=== PATIENT | female | born 1935 | race Caucasian/White ===

== ENCOUNTER 2016-09-19 11:51 | Inpatient (IN) | payer OTHER ==
[~2016-09-19] VITALS: Ht 152.4 cm; Wt 88.5 kg
--- NOTE | 2016-09-19 12:08 | ED CARDIAC/CP/PALPITATIONS ---
History of Present Illness General Chief Complaint: General Adult Stated Complaint: LIGHTHEADED,NECK PAIN, ELEVATED BP Source: patient, family Exam Limitations: no limitations Vital Signs & Intake/Output Vital Signs & Intake/Output Vital Signs Date Time Temp Pulse Resp B/P Pulse O2 O2 Flow FiO2 Ox Delivery Rate 09/19 1534 96.9 70 18 125/74 97 Nasal 2.5L Cannula 09/19 1452 97 Nasal 2.0L Cannula 09/19 1355 96.6 70 16 119/72 98 Nasal 2.0L Cannula 09/19 1212 96.6 140 20 132/86 99 Room Air Allergies Coded Allergies: hydrocodone (From VICODIN) (Intermediate, GI DISTRESS 09/19/16) Reconcile Medications Apixaban (Eliquis) 5 MG TABLET 0 PO SEE ADMIN CRITERIA blood clots Please take 2 tabs (10 mg total) twice daily for 7 days (09/22/16 to 09/28/16), then take 1 tablet (5 mg total) twice daily starting thursday09/29/16. Please follow up with Dr. Gayle in 1-2 weeks to determine how long to remain on this medication. Calcium Carbonate/Vitamin D3 (Caltrate 600 + D Tablet) 600 MG-800 TABLET 1 TAB PO DAILY SUPPLEMENT (Reported) Cholecalciferol (Vitamin D3) (Vitamin D3) 2,000 UNIT TABLET 1 TAB PO DAILY SUPPLEMENT (Reported) Cyanocobalamin (Vitamin B-12) 1,000 MCG TABLET 1 TAB PO SuTuThSa SUPPLEMENT ( Reported) Cyclobenzaprine HCl 5 MG TABLET 1 TAB PO TIDPRN PRN MUSCLE SPASMS (Reported) Diphenhydramine HCl 50 MG CAPSULE 1 CAP PO QPM SLEEP (Reported) Duloxetine HCl 60 MG CAPSULE.DR 1 CAP PO DAILY UNKNOWN (Reported) Esomeprazole Magnesium (Nexium 24HR) 22.3 MG CAPSULE.DR 1 CAP PO DAILY GI ( Reported) Krill/[place]-3/Dha/Epa/Lipids (Krill Oil 300 MG Softgel) 300 MG-90 MG-24 MG-50 MG -130 MG CAPSULE 1 CAP PO DAILY SUPPLEMENT (Reported) Simvastatin (Simvastatin*) 10 MG TABLET 1 TAB PO DAILY CHOLESTEROL (Reported) Tramadol HCl 50 MG TABLET 1 TAB PO BIDP PRN PAIN (Reported) Triage Nurses Notes Reviewed? yes Onset: Abrupt Duration: SINCE 2 AM, MULTIPLE EPISODES Quality/Severity: moderate, severe Radiation: jaw, neck Prior Chest Pain/Card Workup: no prior chest pain Associated Symptoms: left upper chest pain, sob with exertion, neck pain HPI: 80-year-old female with history of dyslipidemia, previous lumpectomy status post radiation therapy presents to the ER for chief complaint of feeling dizzy, short of breath. Today she states at 2 AM she woke up having pain in her left side of her neck and her job. She was short of breath. She took 2 Aleve and was able to drift back to sleep. This morning she was still feeling poorly but ended up having breakfast. Past History Travel History Traveled to [place] past 21 day No Medical History Any Pertinent Medical History? see below for history Cardiovascular: hypertension, hyperlipidemia Gastrointestinal: GERD Cancer(s): breast cancer Other Medical Hx: dvt Surgical History Surgical History: non-contributory Psychosocial History What is your primary language Armenian Family History Hx Contributory? No Review of Systems Review of Systems Constitutional: Denies: chills, fever. EENTM: Reports: no symptoms. Respiratory: Reports: short of breath. Cardiovascular: Denies: chest pain. GI: Reports: no symptoms. Genitourinary: Reports: no symptoms. Musculoskeletal: Reports: neck pain. Skin: Reports: no symptoms. Neurological/Psychological: Reports: see HPI (DIZZY). Hematologic/Endocrine: Denies: bruising, bleeding, polyuria, polydipsia. Immunologic/Allergic: Denies: splenectomy. All Other Systems: Reviewed and Negative Physical Exam Physical Exam General Appearance: well developed/nourished, alert, awake Head: atraumatic, normal appearance Eyes: Bilateral: normal appearance, PERRL, EOMI. Ears, Nose, Throat: normal pharynx, normal ENT inspection, hearing grossly normal Neck: normal inspection, supple, full range of motion Respiratory: lungs clear, respiratory distress Cardiovascular: tachycardia, irregularly irregular Peripheral Pulses: 2+ radial (R), 2+ radial (L) Gastrointestinal: normal bowel sounds, soft, non-tender Extremities: TRACE B/L EDEMA Neurologic/Psych: no motor/sensory deficits, awake, alert, oriented x 3 Skin: intact, normal color, warm/dry Core Measures ACS in differential dx? Yes ASA ordered for poss ACS? Yes-ordered Severe Sepsis Present: No Septic Shock Present: No Progress Differential Diagnosis: AMI, aortic dissection, cholecystitis, CHF/pulm edema, pulmonary embolism Plan of Care: Orders Procedure Date/time Status Heart Healthy Diet 09/20 B Active EKG 09/19 1223 Active Telemetry/Demolition Engineer 09/19 1216 Active THYROID STIMULATING HORMONE 09/19 1216 Complete TROPONIN LEVEL 09/19 1216 Complete PARTIAL THROMBOPLASTIN TIME 09/19 1216 Complete PROTHROMBIN TIME 09/19 1216 Complete LACTIC ACID 09/19 1216 Complete FREE T4 09/19 1216 Complete COMPREHENSIVE METABOLIC PANEL 09/19 1216 Complete CBC WITHOUT DIFFERENTIAL 09/19 1216 Complete B-TYPE NATRIURETIC PEP (BNP) 09/19 1216 Complete EKG 09/19 115 Active Laboratory Tests 09/19/16 1517: Lactic Acid Cancelled 09/19/16 1335: PT 10.9, INR 1.04, APTT 28 09/19/16 121: Anion Gap 5, Estimated GFR 29 L, BUN/Creatinine Ratio 25.3 H, Glucose 83, Lactic Acid 1.0, Calcium 8.9, Total Bilirubin 0.6, AST 23, ALT 37, Alkaline Phosphatase 70, Troponin I 0.10, Nzr-R-Fjjhtjnmfma Pept 1610 H, Total Protein 6.3, Albumin 3.8, Globulin 2.5, Albumin/Globulin Ratio 1.5, TSH 2.320, Free T4 1.21, CBC w Diff NO MAN DIFF REQ, RBC 4.04 L, MCV 92.3, MCH 30.2, RDW 14.9 H, MPV 7.9, Gran % 77.4 H, Lymphocytes % 12.1 L, Monocytes % 7.7, Eosinophils % 2.5, Basophils % 0.3, Absolute Granulocytes 6.4, Absolute Lymphocytes 1.0 L, Absolute Monocytes 0.6, Absolute Eosinophils 0.2, Absolute Basophils 0, PUBS MCHC 32.8 L EKG, TELE MONITOR, LABS, CXR ORDERED. PATIENT SPONTANEOUSLY CONVERTED TO NSR. ELEVATED CRE. DOPPLERS, VQ SCAN ORDERED. V/Q CONSISTENT WITH ERIC PE. HEAPRIN STARTED. D/W DR GAYLE FOR ADMISSION. (CARMEN DOMINGUEZ,CRISTINA) Diagnostic Imaging: Viewed by Me: Radiology Read, Ultrasound, Nuclear Medicine. Discussed w/RAD: Radiology Read, Ultrasound, Nuclear Medicine. Radiology Impression: PATIENT: CHRISTY URBINA PRESENT AGE: 80 PATIENT ACCOUNT NO: [id number] : 34 LOCATION: [facility] ORDERING PHYSICIAN: CRISTINA WINSTON MD SERVICE DATE: 09/19/16 EXAM TYPE: US - US-EXT BILAT VENOUS DOPPLER EXAMINATION: US TRIPLEX LOWER EXTREMITY, BILATERAL CLINICAL INFORMATION: Shortness of breath and clinical question of pulmonary embolus. COMPARISON: None. TECHNIQUE: Color-flow triplex imaging with spectral analysis and compression Doppler were performed on the bilateral lower extremities. FINDINGS: Respiratory variation, normal compression and augmented flow are noted throughout the bilateral lower extremities. The visualized common femoral vein, proximal greater saphenous vein, femoral vein, profunda femoral vein, popliteal vein and visualized mid calf venous segments show no evidence of deep venous thrombosis. There is a 2.8 x 2.1 x 1.9 cm right popliteal fossa Todd's cyst. IMPRESSION: 1. Normal triplex scan without evidence of deep venous thrombosis involving the bilateral lower extremities. 2. A right popliteal fossa Todd's cyst is seen. DICTATED BY: EDMUND MARES MD DATE/TIME DICTATED:09/19/161337 JOB SERVICE SPECIALIST:AB DATE/TIME TRANSCRIBED:09/19/161337 CONFIDENTIAL, DO NOT COPY WITHOUT APPROPRIATE AUTHORIZATION. <Electronically signed in Other Vendor System> SIGNED BY: EDMUND MARES MD 09/19/16 1351 Initial ED EKG: AFIB (RAPID) Repeat EKG: changed (NSR) Rhythm Strip: normal sinus rhythm, atrial fibrillation Comments: PATIENT: CHRISTY URBINA PRESENT AGE: 80 PATIENT ACCOUNT NO: [id number] : 34 LOCATION: [facility] ORDERING PHYSICIAN: CRISTINA WINSTON MD SERVICE DATE: 09/19/16 EXAM TYPE: RAD - XRY-PORTABLE CHEST XRAY EXAMINATION: XR PORTABLE CHEST CLINICAL INFORMATION: Rapid A. fib, new onset. Assess for CHF. COMPARISON: None TECHNIQUE: Portable AP view of the chest was obtained. FINDINGS: The thoracic aorta is unfolded. The heart size is top normal for technique with a left ventricular configuration. The lungs appear clear. There is no evidence of pulmonary edema, consolidation, pleural effusion, or pneumothorax. The spine is not well assessed due to technique. No osseous abnormalities are evident. IMPRESSION: No acute abnormality. DICTATED BY: MIMI BANDA MD DATE/TIME DICTATED:09/19/161253 JOB SERVICE SPECIALIST:AB DATE/TIME TRANSCRIBED:09/19/161253 CONFIDENTIAL, DO NOT COPY WITHOUT APPROPRIATE AUTHORIZATION. <Electronically signed in Other Vendor System> SIGNED BY: MIMI BANDA MD 09/19/16 1300 PATIENT: CHRISTY URBINA PRESENT AGE: 80 PATIENT ACCOUNT NO: [id number] : 34 LOCATION: [facility] ORDERING PHYSICIAN: CRISTINA WINSTON MD SERVICE DATE: 09/19/16-1299 EXAM TYPE: US - US-EXT BILAT VENOUS DOPPLER EXAMINATION: US TRIPLEX LOWER EXTREMITY, BILATERAL CLINICAL INFORMATION: Shortness of breath and clinical question of pulmonary embolus. COMPARISON: None. TECHNIQUE: Color-flow triplex imaging with spectral analysis and compression Doppler were performed on the bilateral lower extremities. FINDINGS: Respiratory variation, normal compression and augmented flow are noted throughout the bilateral lower extremities. The visualized common femoral vein, proximal greater saphenous vein, femoral vein, profunda femoral vein, popliteal vein and visualized mid calf venous segments show no evidence of deep venous thrombosis. There is a 2.8 x 2.1 x 1.9 cm right popliteal fossa Todd's cyst. IMPRESSION: 1. Normal triplex scan without evidence of deep venous thrombosis involving the bilateral lower extremities. 2. A right popliteal fossa Todd's cyst is seen. DICTATED BY: EDMUND MARES MD DATE/TIME DICTATED:09/19/161337 JOB SERVICE SPECIALIST:AB DATE/TIME TRANSCRIBED:09/19/161337 CONFIDENTIAL, DO NOT COPY WITHOUT APPROPRIATE AUTHORIZATION. <Electronically signed in Other Vendor System> SIGNED BY: EDMUND MARES MD 09/19/16 1351 PATIENT: CHRISTY URBINA PRESENT AGE: 81 PATIENT ACCOUNT NO: [id number] : 34 LOCATION: [facility] ORDERING PHYSICIAN: CRISTINA WINSTON MD SERVICE DATE: 09/19/16-130 EXAM TYPE: NUC - LUNG SCAN (V/Q) Addendum: This Critical Result was discussed with Dr. Cristina Winston at 4:34 PM on 09/19/2016 and it was ascertained that the content and urgency of the report was understood at the time of direct communication. Addendum Signed by: ELZBIETA GARCIA MD 09/22/16 1107 PULMONARY VENTILATION/PERFUSION STUDY: CLINICAL INDICATION: No atrial fibrillation. Shortness of breath. COMPARISON: No previous lung scan is available for comparison. A chest radiograph dated 01/01/2017, the same date as this lung scan, is available for comparison. PROCEDURE: Following the inhalation of 14.7 millicuries technetium 99m DTPA aerosol, multiple images of the chest were obtained in multiple projections. Subsequently, following the intravenous administration of 4.1 millicuries technetium 99m MAA, images of the chest were again obtained in multiple projections using a gamma scintophoto camera. VENTILATION IMAGES: There is homogeneous distribution of activity in the lungs. No focal ventilatory defects are noted. There is no significant retained activity in the large airways. PERFUSION IMAGES: A segmental perfusion defect is present involving the apical posterior segment of the left upper lobe. No other perfusion abnormalities are present. Chest radiograph dated 09/19/2016 shows no significant abnormality in the left lung apex that corresponds to the perfusion abnormality described above. IMPRESSION: Intermediate probability of pulmonary embolism. A mismatched segmental perfusion defect is present in the left upper lobe as described above. DICTATED BY: ELZBIETA GARCIA MD DATE/TIME DICTATED:09/19/161612 JOB SERVICE SPECIALIST:AB DATE/TIME TRANSCRIBED:09/19/161612 CONFIDENTIAL, DO NOT COPY WITHOUT APPROPRIATE AUTHORIZATION. <Electronically signed in Other Vendor System> SIGNED BY: ELZBIETA GARCIA MD 1622 Departure Departure Time of Disposition: 1650 Disposition: STILL A PATIENT Condition: Stable Clinical Impression Primary Impression: Pulmonary embolism Secondary Impressions: Paroxysmal atrial fibrillation Referrals: CORAL DOMINGUEZ,JEWELL Lorenz Departure Forms: Customer Survey General Discharge Information Prescriptions: Current Visit Scripts Apixaban (Eliquis) 0 PO SEE ADMIN CRITERIA #30 Ref 1 Please take 2 tabs (10 mg total) twice daily for 7 days (09/22/16 to 09/28/16), then take 1 tablet (5 mg total) twice daily starting thursday09/29/16. Please follow up with Dr. Gayle in 1-2 weeks to determine how long to remain on this medication. Admission Note Spoke With: NALINI DOMINGUEZ,LUCIEN Shah Documentation of Exam: Documentation of any treatments & extenuating circumstances including Concerns Regarding Discharge (functional status, medication knowledge or non-compliance, living conditions, etc.) that warrant an admission rather than observation: [ TELE MONITOR, HEPARIN DRIP, PT/PTT, PULMONARY CONSULT, ECHOCARDIOGRAM, SERIAL EKG/TROPONIN] Critical Care Note Critical Care Note Critical Care Time: 30-74 min
--- NOTE | 2016-09-19 12:26 | NUR ---
PT TO ROOM 5, C/O FEELING LIGHTHEADED AND EXERTIONAL SOB. HR NOTED TO BE 130-140 IRREGULAR ON MONITOR. IV EST TO LAC. HAS A HX OF BLOOD CLOTS. WAS ON BLOOD THINNERS X6 YEARS AGO PER PT. DENIES ANY CP AT THIS TIME. PT CONVERTED TO NSR WHILE BEING PLACED ON 02 VIA NC. LABS SENT TO LAB. DR MORALES TO [facility].
--- NOTE | 2016-09-19 12:27 | NUR ---
PORT CXR IN ROOM.
[2016-09-19 12:37] LABS: ABSOLUTE BASOPHIL COUNT 0 /CUMM (0.0-0.2); ABSOLUTE EOSINOPHIL COUNT 0.2 /CUMM (0.0-0.7); ABSOLUTE GRANULOCYTE CT 6.4 /CUMM (1.4-6.5); ABSOLUTE MONOCYTE COUNT 0.6 /CUMM (0.10-0.60); BASOPHIL % 0.3 % (0.0-2.0); EOSINOPHIL % 2.5 % (0-5); GRANULOCYTE % 77.4 % (42.2-75.2); HEMATOCRIT 37.3 % (37-47); MEAN CORPUSCULAR HGB 30.2 PG (27.0-31.0); MEAN CORPUSCULAR HGB CONC 32.8 G/DL (33.0-37.0); MEAN CORPUSCULAR VOLUME 92.3 FL (81.0-99.0); MEAN PLATELET VOLUME 7.9 FL (7.4-10.4); PLATELET COUNT 280 /CUMM (130-400); RBC DISTRIBUTION WIDTH 14.9 % (11.5-14.5); RED BLOOD CELL CT 4.04 /CUMM (4.20-5.40); WHITE BLOOD CELL COUNT 8.3 /CUMM (4.8-10.8)
--- NOTE | 2016-09-19 12:43 | NUR ---
REDRAW ON BLUE TOP PER LAB
[2016-09-19] MEDS ORDERED: SIMVASTATIN10 M1 PO (12:44)
[2016-09-19] MEDS ORDERED: CYCLOBENZAPRINE5 M2 PO (12:45)
[2016-09-19] MEDS ORDERED: DULOXETINE HCL60 MG PO (12:45)
[2016-09-19] MEDS ORDERED: MELOXICAM15 M1 PO (12:45)
[2016-09-19] MEDS ORDERED: TRAMADOL HCL50 M1 PO (12:45)
[2016-09-19] MEDS ORDERED: VITAMIN D32000 UNI1 PO (12:46)
[2016-09-19] MEDS ORDERED: CALTRATE 600 +1 EACH PO (12:46)
[2016-09-19] MEDS ORDERED: VITAMIN B-121000 MC3 PO (12:47)
[2016-09-19] MEDS ORDERED: NEXIUM 24HR22.3 MG PO (12:48)
[2016-09-19] MEDS ORDERED: KRILL OIL 3001 EACH PO (12:48)
[2016-09-19] MEDS ORDERED: DIPHENHYDRAMINE50 M1 PO (12:49)
--- NOTE | 2016-09-19 13:00 | NUR ---
PT OUT FOR TESTING.
--- NOTE | 2016-09-19 13:00 | RADIOLOGY REPORT ---
EXAMINATION: XR PORTABLE CHEST CLINICAL INFORMATION: Rapid A. fib, new onset. Assess for CHF. COMPARISON: None TECHNIQUE: Portable AP view of the chest was obtained. FINDINGS: The thoracic aorta is unfolded. The heart size is top normal for technique with a left ventricular configuration. The lungs appear clear. There is no evidence of pulmonary edema, consolidation, pleural effusion, or pneumothorax. The spine is not well assessed due to technique. No osseous abnormalities are evident. IMPRESSION: No acute abnormality.
--- NOTE | 2016-09-19 13:36 | NUR ---
LABS DRAWN AND SENT BY THIS MST 1 BLUE, ROXANNE, SST
--- NOTE | 2016-09-19 13:51 | ULTRASOUND REPORT ---
EXAMINATION: US TRIPLEX LOWER EXTREMITY, BILATERAL CLINICAL INFORMATION: Shortness of breath and clinical question of pulmonary embolus. COMPARISON: None. TECHNIQUE: Color-flow triplex imaging with spectral analysis and compression Doppler were performed on the bilateral lower extremities. FINDINGS: Respiratory variation, normal compression and augmented flow are noted throughout the bilateral lower extremities. The visualized common femoral vein, proximal greater saphenous vein, femoral vein, profunda femoral vein, popliteal vein and visualized mid calf venous segments show no evidence of deep venous thrombosis. There is a 2.8 x 2.1 x 1.9 cm right popliteal fossa Todd's cyst. IMPRESSION: 1. Normal triplex scan without evidence of deep venous thrombosis involving the bilateral lower extremities. 2. A right popliteal fossa Todd's cyst is seen.
[2016-09-19 14:13] LABS: PT 10.9 SEC (9.4-12.5); PTT 28 SEC (25-37)
--- NOTE | 2016-09-19 14:39 | NUR ---
PT TAKEN TO NUC MED.
--- NOTE | 2016-09-19 14:39 | NUR ---
ASPIRIN ORDERED (SEE MAR)
--- NOTE | 2016-09-19 15:34 | NUR ---
ASSUMED CARE AT THIS TIME, PT RESTING ON STRETCHER DENIES PAIN AT THIS TIME. REMAINS ALERT/ORIENTED.
--- NOTE | 2016-09-19 16:18 | NUR ---
PT QUESTIONING IF SHE CAN EAT PER MD ITS OK. FOOD TRAY ORDERED
--- NOTE | 2016-09-19 16:22 | NUCLEAR MEDICINE REPORT ---
PULMONARY VENTILATION/PERFUSION STUDY: CLINICAL INDICATION: No atrial fibrillation. Shortness of breath. COMPARISON: No previous lung scan is available for comparison. A chest radiograph dated 01/01/2017, the same date as this lung scan, is available for comparison. PROCEDURE: Following the inhalation of 14.7 millicuries technetium 99m DTPA aerosol, multiple images of the chest were obtained in multiple projections. Subsequently, following the intravenous administration of 4.1 millicuries technetium 99m MAA, images of the chest were again obtained in multiple projections using a gamma scintophoto camera. VENTILATION IMAGES: There is homogeneous distribution of activity in the lungs. No focal ventilatory defects are noted. There is no significant retained activity in the large airways. PERFUSION IMAGES: A segmental perfusion defect is present involving the apical posterior segment of the left upper lobe. No other perfusion abnormalities are present. Chest radiograph dated 09/19/2016 shows no significant abnormality in the left lung apex that corresponds to the perfusion abnormality described above. IMPRESSION: Intermediate probability of pulmonary embolism. A mismatched segmental perfusion defect is present in the left upper lobe as described above.
--- NOTE | 2016-09-19 17:04 | NUR ---
DR MORALES AT BEDSIDE AND DISCUSSED PLAN OF CARE, HEPARIN BOLUS GIVEN AND IV HEPARING INFUSING VIA PUMP AT 26ML/HR. PT TO HAVE REPEAT LAB WORK AT 2300. PT REMAINS PAIN FREE AT THIS TIME
--- NOTE | 2016-09-19 17:33 | NUR ---
PT SITTING UP EATING AT THIS TIME. AWARE THAT WE ARE WAITING ON BED ASSIGNMENT. REMAINS PAIN FREE AND DENIES SOB
--- NOTE | 2016-09-19 17:47 | NUR ---
VIRGIE DAUGHTER [phone]
--- NOTE | 2016-09-19 17:54 | NUR ---
PT AMBULATED TO BATHROOM WITH ASSIST, STEADY GAIT NOTED AND HEPARIN CONTINUES TO INFUSE.
--- NOTE | 2016-09-19 18:39 | NUR ---
PT GOING TO ROOM 180-2.
--- NOTE | 2016-09-19 18:51 | NUR ---
PT EVALUATED BY HOUSE STAFF AT THIS TIME
--- NOTE | 2016-09-19 19:04 | History & Physical ---
See Addendum ROSMERY BRUNO 09/19/16 1903: General Information and HPI MD Statement: I have seen and personally examined CHRISTY URBINA and documented this H&P. The patient is a 80 year old F who presented with a patient stated chief complaint of pain in the neck, and dizziness. Source of Information: patient Exam Limitations: no limitations History of Present Illness: Ms Urbina is an 80-year-old obese nonsmoking woman who was known to be in her usual state of health until this a.m. She has a past medical history of breast cancer (s/p lumpectomy, chemo+RT 2012), LE DVT s/p AC, hyperlipidemia. She came into the ER with a chief concern of pain on the left side of the chest, left side of the jaw, dizziness 1 day. As per the patient, she woke up around 2 AM with pain on the left side of the chest and left side of the jaw, severity 10/10, sharp, relieved slightly upon taking an anti-inflammatory. Since the pain persisted, and felt lightheaded, she contacted her primary care provider who suggested seek medical attention. Reported shortness of breath at rest, and palpitations. Reported decreased mobility in the last few weeks after she accidentally fell on her knees. Reported increased use of NSAIDs for alleviation of pain secondary to osteoarthritis. Allergies/Medications Allergies: Coded Allergies: hydrocodone (From VICODIN) (Intermediate, GI DISTRESS 09/19/16) Home Med list Calcium Carbonate/Vitamin D3 (Caltrate 600 + D Tablet) 600 MG-800 TABLET 1 TAB PO DAILY SUPPLEMENT (Reported) Cholecalciferol (Vitamin D3) (Vitamin D3) 2,000 UNIT TABLET 1 TAB PO DAILY SUPPLEMENT (Reported) Cyanocobalamin (Vitamin B-12) 1,000 MCG TABLET 1 TAB PO SuTuThSa SUPPLEMENT ( Reported) Cyclobenzaprine HCl 5 MG TABLET 1 TAB PO TIDPRN PRN MUSCLE SPASMS (Reported) Diphenhydramine HCl 50 MG CAPSULE 1 CAP PO QPM SLEEP (Reported) Duloxetine HCl 60 MG CAPSULE.DR 1 CAP PO DAILY UNKNOWN (Reported) Esomeprazole Magnesium (Nexium 24HR) 22.3 MG CAPSULE.DR 1 CAP PO DAILY GI ( Reported) Krill/[place]-3/Dha/Epa/Lipids (Krill Oil 300 MG Softgel) 300 MG-90 MG-24 MG-50 MG -130 MG CAPSULE 1 CAP PO DAILY SUPPLEMENT (Reported) Meloxicam 15 MG TABLET 1 TAB PO DAILY PAIN (Reported) Simvastatin (Simvastatin*) 10 MG TABLET 1 TAB PO DAILY CHOLESTEROL (Reported) Tramadol HCl 50 MG TABLET 1 TAB PO BIDP PRN PAIN (Reported) Past History Travel History Traveled to [place] past 21 day No Medical History Cardiovascular: hyperlipidemia, DVT Gastrointestinal: GERD Renal: chronic kidney disease Surgical History Surgical History: lumpectomy Past Family/Social History Functional Ability ADLs Independent: dressing, eating, toileting, bathing. Ambulation: independent IADLs Independent: food prep. Employment History Employment Retired Review of Systems Review of Systems Constitutional: Denies: chills, fever, malaise. EENTM: Denies: blurred vision, double vision, visual changes, hearing changes. Cardiovascular: Reports: palpitations. Denies: edema, orthopena, peripheral edema. Respiratory: Reports: short of breath. Denies: cough. GI: Denies: abdominal pain, constipation, diarrhea, melena, bloody stool. Genitourinary: Denies: dysuria. Musculoskeletal: Denies: back pain, joint pain. Skin: Denies: jaundice. Neurological/Psychological: Denies: anxiety, headache. Hematologic/Endocrine: Denies: bruising. Exam & Diagnostic Data Last 24 Hrs of Vital Signs/I&O Vital Signs Date Time Temp Pulse Resp B/P Pulse O2 O2 Flow FiO2 Ox Delivery Rate 09/19 1958 71 18 108/57 98 Room Air 09/19 1808 97.1 72 18 124/68 98 Nasal 2.0L Cannula 09/19 1534 96.9 70 18 125/74 97 Nasal 2.5L Cannula 09/19 1452 97 Nasal 2.0L Cannula 09/19 1355 96.6 70 16 119/72 98 Nasal 2.0L Cannula 09/19 1212 96.6 140 20 132/86 99 Room Air Physical Exam General Appearance Alert, Oriented X3, Cooperative, No Acute Distress Skin No Breakdown HEENT Atraumatic, PERRLA, EOMI Neck Supple, No JVD, No thryomegaly, +2 Carotid Pulse wo Bruit Lymphatic Axillary nl, Cervical nl Cardiovascular Regular Rate, Normal S1, Normal S2, No Murmurs Lungs Clear to Auscultation, Normal Air Movement Abdomen Normal Bowel Sounds, Soft, No Tenderness Neurological Normal Speech, Strength at 5/5 X4 Ext, Normal Tone, Sensation Intact, Cranial Nerves 3-12 NL, Reflexes 2+ Extremities No Cyanosis, No Edema, Normal Pulses, No Tenderness/Swelling Vascular Pulses Symmetrical Body Front and Back (Adult) 1) tenderness in the left side of the jaw Last 24 Hrs of Labs/Idris: Laboratory Tests 09/19/16 1928: Troponin I 0.26 *H 09/19/16 1517: Lactic Acid Cancelled 09/19/16 1335: PT 10.9, INR 1.04, APTT 28 09/19/16 1217: Anion Gap 5, Estimated GFR 29 L, BUN/Creatinine Ratio 25.3 H, Glucose 83, Lactic Acid 1.0, Calcium 8.9, Total Bilirubin 0.6, AST 23, ALT 37, Alkaline Phosphatase 70, Troponin I 0.10, Ewy-I-Jmrroemnwxi Pept 1610 H, Total Protein 6.3, Albumin 3.8, Globulin 2.5, Albumin/Globulin Ratio 1.5, TSH 2.320, Free T4 1.21, CBC w Diff NO MAN DIFF REQ, RBC 4.04 L, MCV 92.3, MCH 30.2, RDW 14.9 H, MPV 7.9, Gran % 77.4 H, Lymphocytes % 12.1 L, Monocytes % 7.7, Eosinophils % 2.5, Basophils % 0.3, Absolute Granulocytes 6.4, Absolute Lymphocytes 1.0 L, Absolute Monocytes 0.6, Absolute Eosinophils 0.2, Absolute Basophils 0, PUBS MCHC 32.8 L Diagnostic Data EKG Results EKG upon arrival-atrial fibrillation with rapid ventricular rate, Q waves in V1. EKG #2-normal sinus rhythm, no ST-T wave changes. CXR Results No acute process Other Results VQ scan-mismatch at the left upper lobe, intermediate probability. Assessment/Plan Assessment: She is an older lady with a past history of breast cancer status post chemotherapy and radiation, hyperlipidemia is being evaluated for chest pain, jaw pain, palpitations with VQ scan suggestive of possible acute PE and new onset atrial fibrillation. Time of admission, vitals-temperature 96.6, pulse rate 140 (dropped down to 70), respiration 20, blood pressure 132/86, pulse ox 99% on room air (currently 98% on 2 L nasal cannula). Lab findings indicated WBC 8.3, hemoglobin 12.2, hematocrit 37.3, platelets 280. Electrolytes-sodium 132, potassium 4.6, BUN 43, serum creatinine 1.7 (baseline unknown). ProBNP 1610, TSH 2.32, free T4 1 0.21. Radiological findings-chest x-ray did not show any acute pulmonary changes. VQ scan revealed intermediate probability for PE. Differential diagnosis: #1 acute pulmonary embolism #2 acute coronary syndrome # 3 pneumonia Below is the problem list and plan: #1 chest discomfort-differentials include acute PE, myocardial infarction. EKG revealed atrial fibrillation which could likely be due to acute PE. Serial troponins and EKGs to be obtained. Echocardiogram to check the right heart strain. Patient has been started on intravenous heparin. Continue IV heparin at this time. May consider a novel anticoagulant at the time of discharge. Continue to monitor closely for changes in vital signs. No rate controlling meds at this time. Patient had history of malignancy, which makes deep venous thrombosis more likely. No workup for any familial causes required. Can consider this as provoked DVT, and need anticoagulation for at least 4 a total of 3 months. Can reevaluate with a CTA, if kidney function normalizes. #2 atrial fibrillation- likely secondary to acute PE and myocardial infarction. Patient currently on IV heparin. #3 abnormal kidney action-likely due to excessive NSAID use and/or other causes such as HTN. Need to obtain records from the primary care doctor to ascertain the baseline. Check urine lites, urinalysis to be related ATN vs CKD. #4 DVT prophylaxis-IV heparin As Ranked By This Provider Problem List: 1. Paroxysmal atrial fibrillation 2. Pulmonary embolism Core Measures/Miscellaneous Acute Coronary Syndrome ACS Diagnosis: No Cerebrovascular Accident CVA/TIA Diagnosis: No Congestive Heart Failure CHF Diagnosis: No Venous Thromboembolism VTE Risk Factors: Acute medical illness, Age > 40, Cancer[facility]chemo/[facility] prophylaxis d/t: No contraindications No VTE Pharm Prophylaxis d/t: No contraindications VTE Diagnosis: Yes VTE Type: Pulmonary Embolism VTE Confirmed by (Test): LUNG SCAN (V/Q) Severe Sepsis Severe Sepsis Present: No Septic Shock Septic Shock Present: No Miscellaneous Documentation Attending Case Discussed With: NALINI DOMINGUEZ,LUCIEN Shah Primary Care Physician: BRIANNA SAUNDERS MD Patient sees these Specialists Dr Campbell (vascular surgeon) Level of Patient Care: Telemetry VISHAL IVAN 09/19/161941: Resident Review Statement Resident Statement: examined this patient, discussed with university internship, agreed with university internship, reviewed EMR data (avail), discussed with nursing, reviewed images Other Findings: Mrs. Urbina is an 80-year-old female with significant past medical history of osteoarthritis, hyperlipidemia, breast cancer status post lumpectomy, chemotherapy and radiation 2012 [Dr. Arnold oncologist, and Dr. Almonte surgeon] who presents to the hospital emergency department with complaints of neck/jaw pain as well as dizziness and palpitations. She states that she woke up approximately 2 AM with complaints of this neck and jaw pain, which was associated with dyspnea. She took an NSAID and went back to bed however when she woke up in the morning she continued to have pain. She stated that it was approximately 10 out of 10. She also complained of palpitations. She denied any chest pain, nausea or vomiting. She denied any diaphoresis as well. She called her primary care physician and was instructed to come emergency department. Upon arrival to the emergency department she was noted to be tachycardic in the 140s, and in atrial fibrillation. She converted to normal sinus rhythm when she was being examined downstairs in the emergency department. At the time of interview, she states that her pain had completely subsided and she had no acute complaints. Upon further questioning, she states that she fell down 3 weeks ago and bruised her knees, and given the pain she subsequently decreased her activity and laid in bed/on her couch for much of the 3 weeks. At baseline she is independent, lives alone and is quite active walking her dog multiple times a day. Vitals on admission temperature 96.6, pulse rate 140, respiratory rate 20, blood pressure 132/86 saturating 98% on 2 L oxygen via nasal cannula. Physical exam, HEENT exam within normal limits, heart exam regular rate and rhythm, S1-S2 positive without any significant murmurs rubs or gallops. Lung exam, CTA BL. Abdominal exam, soft, non tender, hypoactive bowel sounds. Extremities: BL bruising noted on the knee, no tenderness, or significant swelling. Homans negative. No appreciable calf circumference difference. Pt denied a rectal exam. Initial EKG showed atrial fibrillation at a rate of 134 approximately, after converting to normal sinus rhythm rate was 73, left axis deviation, VT 208 ms, QTC 415ms, a Q wave was noted in V1. No significant ST-T changes were noted. Labs were significant for white blood cell count 8.3, H&H 12.2/37.3, platelet count 280. BEP, sodium 132, potassium 4.6, BUN/creatinine 43/1.7 first lactic acid 1.0. ProBNP 1610. Troponin 0.1. TSH 2.32, free T4 1 0.21. Chest x-ray within normal limits, duplex ultrasound of the lower extremities negative for DVT, however V/Q scan of the lungs revealed a mismatch segmental perfusion defect in the left upper lobe, intermediate probability for pulmonary embolism. Problem list assessment and plan Acute pulmonary embolism and paroxysmal afib * Admit to the telemetry service for tele monitoring for afib evaluation * Paroxysmal atrial fibrillation which converted to normal sinus rhythm. Most likely this is secondary to a pulmonary embolism which may have traveled from her legs given the fact that she did recently have a fall with subsequent immobility. * Although she is a normal sinus rhythm at the moment, she will require anticoagulation regardless given the fact that she does have a pulmonary embolism. * It is a provoked pulmonary embolism, and she will require 3-6 months of anticoagulation. * Echocardiogram to evaluate heart strain and PA pressures and serial troponins and EKGs to rule her out. * We can probably consider one of the new novel anticoagulants, at a reduced dose given her creatinine clearance, consider Eliquis 2.5 mg twice a day. * Pt denied a rectal exam, guiac all stools and contact GI if significant GI bleeding occurs. * cardio consult placed and appreciated CKD * Per the patient, her primary care physician told her that her kidney function was a little impaired however we do not have a baseline. * She states that she does take quite a bit of NSAIDs given her osteoarthritis, including meloxicam and Aleve for years. * We will hold NSAIDs for now and use Tylenol for pain, we will gently hydrate and repeat BUN and creatinine tomorrow morning. 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 * We will consider urinary lytes and spot protein to evaluate for proteinuria * Consider renal ultrasound and nephrology input if labs are abnormal tomorrow morning. FULL CODE Regular diet IV heparin DVT prophylaxis Pain pathway
--- NOTE | 2016-09-19 19:31 | NUR ---
REPEAT TROPONIN SENT TO LAB.
--- NOTE | 2016-09-19 19:35 | NUR ---
CARDIOLOGY AT BEDSIDE
--- NOTE | 2016-09-19 20:03 | NUR ---
ATTEMPT TO GIVE REPORT. RN WILL CALL BACK.
--- NOTE | 2016-09-19 20:08 | NUR ---
CRITICAL TEST RESULTS [id number] CHRISTY URBINA 80 F TESTS AND RESULTS: TROPONIN 0.26 Results received and read back by: MIGUEL ANGEL ALONSO Results received date and time: 09/19/162007 The following provider was notified of the results, and read the results back: HOUSE STAFF VISHAL IVAN PAGED TO BE MADE AWARE #[phone] Notified date and time: 09/19/16 at 2008
--- NOTE | 2016-09-19 20:17 | NUR ---
REPORT GIVEN TO GABRIELLA HENDERSON
--- NOTE | 2016-09-19 20:30 | Cons- Cardiology ---
LUCIEN HOWE MD 09/19/16 2000: General Information and HPI Consulting Request Date of Consult: 09/19/16 Requested By: LUCIEN HOWE MD Reason for Consult: "New onset" atrial fibrillation and intermediate probability VQ scan for pulmonary embolism. Source of Information: patient Exam Limitations: no limitations History of Present Illness: Mrs. Dixie Galdamez is an 80-year-old female with a history of obesity , hypertension, dyslipidemia, previous left breast carcinoma s/p lumpectomy, and subsequent radiation/chemotherapy 2012, left lower extremity deep venous thrombosis 2012 treated with anticoagulation for 3 months who presented to the ED with complaints of neck, jaw, left upper chest discomfort that awakened her from sleep at around 3 AM this morning and persisted, ultimately leading to her seeking medical attention. The discomfort was described as severe ("10/10") with associated shortness of breath and lightheadedness. She took 2 Excedrin and tried to return to sleep, but ultimately called her PCP who was unable to see her and was referred to [place] walk-in facility who referred her here. In the ED she was found to be in atrial fibrillation with a rapid ventricular response and given her symptoms underwent a VQ scan that was read as "intermediate probability". Shortly after her arrival she converted back to sinus rhythm with resolution of her symptoms. Allergies/Medications Allergies: Coded Allergies: hydrocodone (From VICODIN) (Intermediate, GI DISTRESS 09/19/16) Home Med List: Apixaban (Eliquis) 5 MG TABLET 0 PO SEE ADMIN CRITERIA blood clots Please take 2 tabs (10 mg total) twice daily for 7 days (09/22/16 to 09/28/16), then take 1 tablet (5 mg total) twice daily starting thursday09/29/16. Please follow up with Dr. Howe in 1-2 weeks to determine how long to remain on this medication. Calcium Carbonate/Vitamin D3 (Caltrate 600 + D Tablet) 600 MG-800 TABLET 1 TAB PO DAILY SUPPLEMENT (Reported) Cholecalciferol (Vitamin D3) (Vitamin D3) 2,000 UNIT TABLET 1 TAB PO DAILY SUPPLEMENT (Reported) Cyanocobalamin (Vitamin B-12) 1,000 MCG TABLET 1 TAB PO SuTuThSa SUPPLEMENT ( Reported) Cyclobenzaprine HCl 5 MG TABLET 1 TAB PO TIDPRN PRN MUSCLE SPASMS (Reported) Diphenhydramine HCl 50 MG CAPSULE 1 CAP PO QPM SLEEP (Reported) Duloxetine HCl 60 MG CAPSULE.DR 1 CAP PO DAILY UNKNOWN (Reported) Esomeprazole Magnesium (Nexium 24HR) 22.3 MG CAPSULE.DR 1 CAP PO DAILY GI ( Reported) Krill/[place]-3/Dha/Epa/Lipids (Krill Oil 300 MG Softgel) 300 MG-90 MG-24 MG-50 MG -130 MG CAPSULE 1 CAP PO DAILY SUPPLEMENT (Reported) Simvastatin (Simvastatin*) 10 MG TABLET 1 TAB PO DAILY CHOLESTEROL (Reported) Tramadol HCl 50 MG TABLET 1 TAB PO BIDP PRN PAIN (Reported) Review of Systems Review of Systems: A 14 point system review was obtained was noncontributory other than for the fact she wears glasses, has hemorrhoids, osteoarthritis, and spinal stenosis. Past History Travel History Traveled to [place] past 21 day No Medical History Cardiovascular: hyperlipidemia, DVT Gastrointestinal: GERD Surgical History Surgical History: lumpectomy Exam & Diagnostic Data Vital Signs and I&O Vital Signs Date Time Temp Pulse Resp B/P Pulse O2 O2 Flow FiO2 Ox Delivery Rate 09/19 1958 71 18 108/57 98 Room Air 09/19 1808 97.1 72 18 124/68 98 Nasal 2.0L Cannula 09/19 1534 96.9 70 18 125/74 97 Nasal 2.5L Cannula 09/19 1452 97 Nasal 2.0L Cannula 09/19 1355 96.6 70 16 119/72 98 Nasal 2.0L Cannula 09/19 1212 96.6 140 20 132/86 99 Room Air Physical Exam: On physical examination she is a well-developed, overweight elderly female in no acute distress with nasal oxygen in place. Vital signs: See above. HEENT: Normocephalic, atraumatic, EOMI, moist mucous membranes. Neck: No JVD, no bruits. Lungs: Clear to auscultation bilaterally. Heart: S1, S2 with no murmur, gallop, or rub appreciated. PMI fifth ICS at [facility]. Abdomen: Soft, nontender, positive bowel sounds. Extremities: No edema. Peripheral pulses: Symmetrical and intact. Labs/Idris Results: Laboratory Tests 09/19 09/19 09/19 1928 1517 1335 Chemistry Lactic Acid Cancelled Troponin I Pending Coagulation PT (9.4 - 12.5 SEC) 10.9 INR (0.90 - 1.19) 1.04 APTT (25 - 37 SEC) 28 09/19 1217 Chemistry Sodium (137 - 145 mmol/L) 132 L Potassium (3.5 - 5.1 mmol/L) 4.6 Chloride (98 - 107 mmol/L) 103 Carbon Dioxide (22 - 30 mmol/L) 24 Anion Gap (5 - 16) 5 BUN (7 - 17 mg/dL) 43 H Creatinine (0.5 - 1.0 mg/dL) 1.7 H Estimated GFR (>60 ml/min) 29 L BUN/Creatinine Ratio (7 - 25 %) 25.3 H Glucose (65 - 99 mg/dL) 83 Lactic Acid (0.7 - 2.1 mmol/L) 1.0 Calcium (8.4 - 10.2 mg/dL) 8.9 Total Bilirubin (0.2 - 1.3 mg/dL) 0.6 AST (14 - 36 U/L) 23 ALT (9 - 52 U/L) 37 Alkaline Phosphatase (<127 U/L) 70 Troponin I (< 0.11 ng/ml) 0.10 [id number] Pept (<125 pg/mL) 1610 H Total Protein (6.3 - 8.2 g/dL) 6.3 Albumin (3.5 - 5.0 g/dL) 3.8 Globulin (1.9 - 4.2 gm/dL) 2.5 Albumin/Globulin Ratio (1.1 - 2.2 %) 1.5 TSH (0.270 - 4.200 uIU/mL) 2.320 Free T4 (0.85 - 1.93 ng/dL) 1.21 Hematology CBC w Diff NO MAN DIFF REQ WBC (4.8 - 10.8 /CUMM) 8.3 RBC (4.20 - 5.40 /CUMM) 4.04 L Hgb (12.0 - 16.0 G/DL) 12.2 Hct (37 - 47 %) 37.3 MCV (81.0 - 99.0 FL) 92.3 MCH (27.0 - 31.0 PG) 30.2 RDW (11.5 - 14.5 %) 14.9 H Plt Count (130 - 400 /CUMM) 280 MPV (7.4 - 10.4 FL) 7.9 Gran % (42.2 - 75.2 %) 77.4 H Lymphocytes % (20.5 - 51.1 %) 12.1 L Monocytes % (1.7 - 9.3 %) 7.7 Eosinophils % (0 - 5 %) 2.5 Basophils % (0.0 - 2.0 %) 0.3 Absolute Granulocytes (1.4 - 6.5 /CUMM) 6.4 Absolute Lymphocytes (1.2 - 3.4 /CUMM) 1.0 L Absolute Monocytes (0.10 - 0.60 /CUMM) 0.6 Absolute Eosinophils (0.0 - 0.7 /CUMM) 0.2 Absolute Basophils (0.0 - 0.2 /CUMM) 0 PUBS MCHC (33.0 - 37.0 G/DL) 32.8 L Diagnostic Data EKG Results (09/19/2016 @12:05) atrial fibrillation with a rapid ventricular response, and minor nondiagnostic ST-T wave abnormalities. EKG (09/19/2016 @12:29) sinus rhythm, first-degree AV block, and late precordial transition. CXR Results (09/19/2016) no acute cardiopulmonary process. Other Results Lower extremity Doppler ultrasound (09/19/2016) no evidence of deep venous thrombosis. VQ scan (09/19/2016) Intermediate probability of pulmonary embolism. A mismatched segmental perfusion defect is present in the left upper lobe as described above. Assessment/Plan Assessment/Plan Mrs. Galdamez is an elderly female with a history of obesity, hypertension, dyslipidemia, previous "provoked" DVT being treated for breast carcinoma who presented with new onset atrial fibrillation with a rapid ventricular response secondary to a provoked pulmonary embolism following a fall/immobility for the past several weeks. Recommendations: * Telemetry admission, follow-up electrocardiogram in the a.m., follow-up troponins. * IV heparin followed by the initiation of a factor X a inhibitor or warfarin. * Echocardiogram to assess right ventricular size and function, estimated PA systolic pressure, atrial size, left ventricular function, etc. * Nephrology consultation, abdominal ultrasound, check phosphorus, urinalysis, etc. * Add magnesium level to blood work already performed. * Check glycosylated hemoglobin A1c. * DVT prophylaxis being addressed by for anticoagulation for atrial fibrillation /pulmonary embolism. Consult Acknowledgment - Thank you for your consult request. LASHAWN MARTINO MD 09/21/16 1527: Assessment/Plan Consult Acknowledgment - Thank you for your consult request.
[2016-09-19 23:11] VITALS: BP 134/88
[2016-09-20 00:22] LABS: PTT > 120 SEC (25-37)
[2016-09-20 05:37] LABS: ABSOLUTE BASOPHIL COUNT 0 /CUMM (0.0-0.2); ABSOLUTE EOSINOPHIL COUNT 0.4 /CUMM (0.0-0.7); ABSOLUTE GRANULOCYTE CT 5.4 /CUMM (1.4-6.5); ABSOLUTE LYMPH COUNT 1.5 /CUMM (1.2-3.4); ABSOLUTE MONOCYTE COUNT 0.7 /CUMM (0.10-0.60); BASOPHIL % 0.5 % (0.0-2.0); EOSINOPHIL % 5.6 % (0-5); GRANULOCYTE % 66.6 % (42.2-75.2); HEMATOCRIT 35.3 % (37-47); MEAN CORPUSCULAR HGB CONC 32.4 G/DL (33.0-37.0); MEAN CORPUSCULAR VOLUME 92.3 FL (81.0-99.0); MEAN PLATELET VOLUME 8.1 FL (7.4-10.4); PLATELET COUNT 261 /CUMM (130-400); RBC DISTRIBUTION WIDTH 15.1 % (11.5-14.5); RED BLOOD CELL CT 3.83 /CUMM (4.20-5.40); WHITE BLOOD CELL COUNT 8.1 /CUMM (4.8-10.8)
[2016-09-20 07:43] VITALS: BP 125/70
--- NOTE | 2016-09-20 09:16 | PN- Housestaff ---
Subjective Follow-up For: Chest discomfort Atrial Fibrillation Elevated creatinine (GFR 39 unknown baseline) Tele-Events Since Last Visit: Sinus rhythm 64-76bpm NO overnight events Subjective: I saw and examined the patient today morning. she is lying comfortably in the bed, denies any chest pain, discomfort, shortness of breath. Iv heparin running, on 2L oxygen. Review of Systems Constitutional: Reports: see HPI. Comments: ROS negative except the above. Objective Last 24 Hrs of Vital Signs/I&O Vital Signs Date Time Temp Pulse Resp B/P Pulse O2 O2 Flow FiO2 Ox Delivery Rate 09/21 799 99 Nasal 2.0L Cannula 09/20 0743 98.4 72 125/70 99 09/19 2311 98.1 66 20 134/88 98 Nasal 2.0L Cannula 09/19 2244 Nasal 2.0L Cannula 09/19 1958 71 18 108/57 98 Room Air 09/19 1808 97.1 72 18 124/68 98 Nasal 2.0L Cannula 09/19 1534 96.9 70 18 125/74 97 Nasal 2.5L Cannula 09/19 1452 97 Nasal 2.0L Cannula 09/19 1355 96.6 70 16 119/72 98 Nasal 2.0L Cannula 09/19 1212 96.6 140 20 132/86 99 Room Air Intake & Output 09/20 1600 09/20 0800 09/20 0000 Intake Total 200 Output Total Balance 200 Intake, Oral 200 Patient 88.451 kg Weight Physical Exam General Appearance: Alert, Oriented X3, Cooperative Skin: No Rashes, No Breakdown HEENT: Atraumatic, PERRLA, EOMI Neck: Supple Cardiovascular: Regular Rate, Normal S1, Normal S2, No Murmurs Lungs: Clear to Auscultation, Normal Air Movement Abdomen: Normal Bowel Sounds, Soft, No Tenderness Neurological: Strength at 5/5 X4 Ext, Normal Tone, Sensation Intact, Cranial Nerves 3-12 NL Extremities: No Clubbing, No Cyanosis Assessment/Plan Assessment: 80 YO F with a PMH of breast cancer s/p chemotherapy and radiation, hyperlipidemia is being evaluated for chest pain, jaw pain, palpitations with VQ scan suggestive of possible acute PE and new onset atrial fibrillation. Time of admission, vitals-temperature 96.6, pulse rate 140 (dropped down to 70), respiration 20, blood pressure 132/86, pulse ox 99% on room air (currently 98% on 2 L nasal cannula). Lab findings indicated WBC 8.3, hemoglobin 12.2, hematocrit 37.3, platelets 280. Electrolytes-sodium 132, potassium 4.6, BUN 43, serum creatinine 1.7 (baseline unknown). ProBNP 1610, TSH 2.32, free T4 1 0.21. Radiological findings-chest x-ray did not show any acute pulmonary changes. VQ scan revealed intermediate probability for PE. Differential diagnosis: #1 acute pulmonary embolism #2 acute coronary syndrome # 3 pneumonia Below is the problem list and plan: #1 chest discomfort-differentials include acute PE, myocardial infarction. EKG revealed atrial fibrillation which could likely be due to acute PE. Serial troponins and EKGs to be obtained. Echocardiogram to check the right heart strain. Plan is to anticoagulate with IV heparin followed by Xa inhibitor vs warfarin. No rate controlling meds at this time. Patient had history of malignancy, which makes deep venous thrombosis more likely (provoked). No workup for any familial causes required. Can consider this as provoked DVT, and need anticoagulation for at least 4 a total of 3 months. Can reevaluate with a CTA, if kidney function normalizes. #2 atrial fibrillation- likely secondary to acute PE and myocardial infarction. Patient currently on IV heparin. #3 abnormal kidney action-likely due to excessive NSAID use and/or other causes such as HTN. Need to obtain records from the primary care doctor to ascertain the baseline. Nephro consulted, NPO overnight for ultrasound of abdomen, UA, phosphorous requested. #4 DVT prophylaxis-IV heparin Problem List: 1. Pulmonary embolism 2. Paroxysmal atrial fibrillation Pain Ratin Pain Location: n/a Pain Goal: Pain 4 or less Pain Plan: tylenol prn Tomorrow's Labs & Rationales: bep to monitor renal function, electrolytes cbc to monitor H&H, platelets while on heparin ultrasound of abdomen phosphorous UA
[2016-09-20 14:46] LABS: PTT 79 SEC (25-37)
[2016-09-20 16:00] VITALS: BP 126/78
--- NOTE | 2016-09-20 18:18 | PN- Cardiology ---
Subjective Subjective: No specific complaints. Converted to sinus rhythm with first-degree AV block and around midnight and has been maintaining sinus rhythm since that time. Objective Vital Signs and I&Os Vital Signs Date Time Temp Pulse Resp B/P Pulse O2 O2 Flow FiO2 Ox Delivery Rate 09/20 1600 98.8 60 20 126/78 92 Room Air 09/20 1600 92 Room Air 09/20 1444 95 Room Air 09/20 0800 99 Nasal 2.0L Cannula 09/20 0743 98.4 72 125/70 99 09/19 2311 98.1 66 20 134/88 98 Nasal 2.0L Cannula 09/19 2244 Nasal 2.0L Cannula 09/19 1958 71 18 108/57 98 Room Air Intake & Output 09/20 0000 09/19 1600 09/19 0000 Intake Total 1340 200 Output Total Balance 1340 200 Intake, IV 740 Intake, Oral 600 200 Patient 195 lb Weight Physical Exam: On physical examination she is a well-developed, overweight elderly female in no acute distress with nasal oxygen in place. Vital signs: See above. HEENT: Normocephalic, atraumatic, EOMI, moist mucous membranes. Neck: No JVD, no bruits. Lungs: Clear to auscultation bilaterally. Heart: S1, S2 with no murmur, gallop, or rub appreciated. PMI fifth ICS at MCL. Abdomen: Soft, nontender, positive bowel sounds. Extremities: No edema. Peripheral pulses: Symmetrical and intact. Current Medications: Current Medications Sig/Sabine Start time Last Medication Dose Route Stop Time Status Admin Acetaminophen 650 MG Q6P PRN 09/19 1845 AC 09/20 PO 1444 Acetaminophen 325 MG Q6P PRN 09/19 1845 AC PO Acetaminophen 1,000 MG Q6P PRN 09/19 184 AC IV Atorvastatin Calcium 5 MG 1700 09/20 1700 AC 09/20 PO 1653 Cyanocobalamin 1,000 MCG SuTuThSa 09/20 1929 AC PO Cyclobenzaprine HCl 5 MG TIDPRN PRN 09/19 193 AC PO Diphenhydramine HCl 50 MG QPM 09/19 2200 AC 09/19 PO 2218 Duloxetine HCl 60 MG DAILY 09/20 1000 AC 09/20 PO 0836 Heparin Sodium 25,000 UNIT Q24H 09/19 1645 AC 09/20 (Porcine) IV 1653 Sodium Chloride 500 ML Omeprazole 20 MG DAILY AC 09/20 0700 AC 09/20 PO 0606 Polyethylene Glycol 17 GM DAILY 09/20 1000 AC PO Sodium Chloride 1,000 ML DAILY 09/19 1845 AC 09/20 IV 0836 Tramadol HCl 50 MG ONCE ONE 09/20 0900 DC 09/20 PO 09/20 0901 0853 Results Last 48 Hrs of Labs/Mics: Laboratory Tests 09/20/16 1250: APTT 79 H 09/20/16 0425: Troponin I 0.18 *H 09/20/16 0425: Anion Gap 9, Estimated GFR 29 L, BUN/Creatinine Ratio 22.9, CBC w Diff NO MAN DIFF REQ, RBC 3.83 L, MCV 92.3, MCH 30.0, RDW 15.1 H, MPV 8.1, Gran % 66.6, Lymphocytes % 19.2 L, Monocytes % 8.1, Eosinophils % 5.6 H, Basophils % 0.5, Absolute Granulocytes 5.4, Absolute Lymphocytes 1.5, Absolute Monocytes 0.7 H, Absolute Eosinophils 0.4, Absolute Basophils 0, PUBS MCHC 32.4 L 09/19/16 2345: APTT > 120 *H 09/19/16 1928: Troponin I 0.26 *H 09/19/16 1517: Lactic Acid Cancelled 09/19/16 1335: PT 10.9, INR 1.04, APTT 28 09/19/16 1217: Anion Gap 5, Estimated GFR 29 L, BUN/Creatinine Ratio 25.3 H, Glucose 83, Lactic Acid 1.0, Calcium 8.9, Total Bilirubin 0.6, AST 23, ALT 37, Alkaline Phosphatase 70, Troponin I 0.10, [id number] Pept 1610 H, Total Protein 6.3, Albumin 3.8, Globulin 2.5, Albumin/Globulin Ratio 1.5, TSH 2.320, Free T4 1.21, CBC w Diff NO MAN DIFF REQ, RBC 4.04 L, MCV 92.3, MCH 30.2, RDW 14.9 H, MPV 7.9, Gran % 77.4 H, Lymphocytes % 12.1 L, Monocytes % 7.7, Eosinophils % 2.5, Basophils % 0.3, Absolute Granulocytes 6.4, Absolute Lymphocytes 1.0 L, Absolute Monocytes 0.6, Absolute Eosinophils 0.2, Absolute Basophils 0, PUBS MCHC 32.8 L Assessment/Plan Assessment/Plan Mrs. Galdamez is an elderly female with a history of obesity, hypertension, dyslipidemia, previous "provoked" DVT being treated for breast carcinoma who presented with new onset atrial fibrillation with a rapid ventricular response secondary to a provoked pulmonary embolism following a fall/immobility for the past several weeks. Fortunately, she had only a modest troponin elevation which is likely on the basis of the pulmonary embolism, chronic kidney disease, demand ischemia etc. Converted back to sinus rhythm with first-degree AV block at around midnight and has been maintaining sinus rhythm since that time with an acceptable heart rate. Recommendations: * Continue on telemetry. * IV heparin followed by the initiation of a factor X a inhibitor or warfarin. * Echocardiogram in a.m. to assess right ventricular size and function, estimated PA systolic pressure, atrial size, left ventricular function, etc. * Nephrology consultation, abdominal ultrasound, check phosphorus, urinalysis, as were recommended yesterday (09/19/2016). * Add magnesium level to blood work already performed, as was recommended yesterday (09/19/2016). * Check glycosylated hemoglobin A1c, as was also recommended yesterday (2016). * DVT prophylaxis being addressed by for anticoagulation for atrial fibrillation /pulmonary embolism. Further recommendations will follow. Continue telemetry? Yes
[2016-09-21] VITALS: BP 126/78
[2016-09-21 02:18] LABS: PTT 74 SEC (25-37)
[2016-09-21 08:13] VITALS: BP 110/70
--- NOTE | 2016-09-21 09:53 | PN- Housestaff ---
Subjective Follow-up For: Chest discomfort Atrial Fibrillation Elevated creatinine Complaints: no complaints Tele-Events Since Last Visit: Normal sinus rhythm, heart rate between 64-84, no any overnight events Subjective: Patient is seen and examined, denies any complaints Review of Systems Constitutional: Denies: see HPI. Objective Last 24 Hrs of Vital Signs/I&O Vital Signs Date Time Temp Pulse Resp B/P Pulse O2 O2 Flow FiO2 Ox Delivery Rate 09/21 1600 94 Room Air 09/21 1600 98.1 72 18 132/84 94 Room Air 09/21 0813 98.6 67 16 110/70 97 Room Air 09/21 0000 Room Air 09/21 0000 98.4 87 18 126/78 94 Room Air Intake & Output 09/21 1600 09/21 0800 09/21 0000 Intake Total 770 100 536 Output Total 650 Balance 120 100 536 Intake, IV 170 0 136 Intake, Oral 600 100 400 Number 0 0 Bowel Movements Output, Urine 650 Physical Exam General Appearance: Alert, Oriented X3, Cooperative Cardiovascular: Normal S1, Normal S2 Lungs: Clear to Auscultation, Normal Air Movement Extremities: No Clubbing, No Cyanosis Current Medications: Current Medications Sig/Sabine Start time Last Medication Dose Route Stop Time Status Admin Acetaminophen 650 MG Q6P PRN 09/19 1845 AC 09/20 PO 1444 Acetaminophen 325 MG Q6P PRN 09/19 184 AC PO Acetaminophen 1,000 MG Q6P PRN 09/19 184 AC IV Atorvastatin Calcium 5 MG 1700 09/20 1700 AC 09/21 PO 1648 Cyanocobalamin 1,000 MCG SuTuThSa 09/21 2139 AC 09/21 PO 220 Cyanocobalamin 1,000 MCG SuTuThSa 09/20 1930 DC 09/20 PO 2146 Cyclobenzaprine HCl 5 MG TIDPRN PRN 09/19 1930 AC 09/21 PO 2207 Diphenhydramine HCl 50 MG QPM 09/19 2200 AC 09/21 PO 2207 Duloxetine HCl 60 MG DAILY 09/20 1000 AC 09/21 PO 0804 Heparin Sodium 25,000 UNIT Q24H 09/19 1645 AC 09/21 (Porcine) IV 1648 Sodium Chloride 500 ML Omeprazole 20 MG DAILY AC 09/20 0700 AC 09/21 PO 0654 Polyethylene Glycol 17 GM DAILY 09/20 1000 AC PO Sodium Chloride 1,000 ML DAILY 09/19 1845 AC 09/21 IV 0804 Tramadol HCl 50 MG Q6-PRN PRN 09/21 1330 AC 09/21 PO 1344 Last 24 Hrs of Lab/Idris Results Last 24 Hrs of Labs/Mics: Laboratory Tests 09/21/16 1317: APTT 72 H, CBC w Diff NO MAN DIFF REQ, RBC 3.46 L, MCV 92.8, MCH 29.9, RDW 15.5 H, MPV 7.8, Gran % 72.1, Lymphocytes % 14.6 L, Monocytes % 7.6, Eosinophils % 5.0, Basophils % 0.7, Absolute Granulocytes 4.7, Absolute Lymphocytes 0.9 L, Absolute Monocytes 0.5, Absolute Eosinophils 0.3, Absolute Basophils 0, PUBS MCHC 32.3 L 09/21/16 0704: Anion Gap 6, Estimated GFR 39 L, BUN/Creatinine Ratio 21.5, Hemoglobin A1c Pending, Phosphorus 3.6, Magnesium 2.1 09/21/16 0115: APTT 74 H Assessment/Plan Assessment: 80 YO F with a PMH of breast cancer s/p chemotherapy and radiation, hyperlipidemia is being evaluated for chest pain, jaw pain, palpitations with VQ scan suggestive of possible acute PE and new onset atrial fibrillation. Time of admission, vitals-temperature 96.6, pulse rate 140 (dropped down to 70), respiration 20, blood pressure 132/86, pulse ox 99% on room air (currently 98% on 2 L nasal cannula). Lab findings indicated WBC 8.3, hemoglobin 12.2, hematocrit 37.3, platelets 280. Electrolytes-sodium 132, potassium 4.6, BUN 43, serum creatinine 1.7 (baseline unknown). ProBNP 1610, TSH 2.32, free T4 1 0.21. Radiological findings-chest x-ray did not show any acute pulmonary changes. VQ scan revealed intermediate probability for PE. Differential diagnosis: #1 acute pulmonary embolism #2 acute coronary syndrome # 3 pneumonia Below is the problem list and plan: #1 chest discomfort-differentials include acute PE, myocardial infarction. EKG revealed atrial fibrillation which could likely be due to acute PE. Serial troponins were positive, probably secondary to acute coronary event on demand ischemia on right heart strain. Lung scan shows intermediate probability of pulmonary embolism We will follow Echocardiogram to check the right heart strain. Plan is to anticoagulate with IV heparin followed by Xa inhibitor vs warfarin. No rate controlling meds at this time. Patient had history of malignancy, which makes deep venous thrombosis more likely (provoked). No workup for any familial causes required. Can consider this as provoked DVT, and need anticoagulation for at least 3 months. Can reevaluate with a CTA, if kidney function normalizes. #2 atrial fibrillation- likely secondary to acute PE and myocardial infarction. Patient currently on IV heparin. #3 abnormal kidney action -chronic kidney disease likely due to excessive NSAID use and/or other causes such as HTN. Need to obtain records from the primary care doctor to ascertain the baseline. Nephro consulted, advise blood work up which we sent -SPEP, vitamin D, urinalysis, parathyroid hormone, phosphorus, magnesium Ultrasound of the abdomen shows nonspecific abnormal abdominal findings We'll follow UA, phosphorous -3.6. #4 DVT prophylaxis-IV heparin Problem List: 1. Paroxysmal atrial fibrillation 2. Pulmonary embolism Pain Ratin Pain Location: Chest Pain Goal: Remain pain free Pain Plan: [id number] avoid NSAIDs Tomorrow's Labs & Rationales: BEP to follow up with creatinine and electrolyte
[2016-09-21 13:52] LABS: ABSOLUTE BASOPHIL COUNT 0 /CUMM (0.0-0.2); ABSOLUTE EOSINOPHIL COUNT 0.3 /CUMM (0.0-0.7); ABSOLUTE GRANULOCYTE CT 4.7 /CUMM (1.4-6.5); ABSOLUTE LYMPH COUNT 0.9 /CUMM (1.2-3.4); ABSOLUTE MONOCYTE COUNT 0.5 /CUMM (0.10-0.60); BASOPHIL % 0.7 % (0.0-2.0); GRANULOCYTE % 72.1 % (42.2-75.2); HEMATOCRIT 32.1 % (37-47); MEAN CORPUSCULAR HGB 29.9 PG (27.0-31.0); MEAN CORPUSCULAR HGB CONC 32.3 G/DL (33.0-37.0); MEAN CORPUSCULAR VOLUME 92.8 FL (81.0-99.0); MEAN PLATELET VOLUME 7.8 FL (7.4-10.4); PLATELET COUNT 211 /CUMM (130-400); RBC DISTRIBUTION WIDTH 15.5 % (11.5-14.5); RED BLOOD CELL CT 3.46 /CUMM (4.20-5.40); WHITE BLOOD CELL COUNT 6.5 /CUMM (4.8-10.8)
[2016-09-21 14:01] LABS: PTT 72 SEC (25-37)
--- NOTE | 2016-09-21 15:12 | ULTRASOUND REPORT ---
EXAMINATION: US ABDOMEN COMPLETE CLINICAL INFORMATION: Pulmonary embolism, chest pain, chronic Excedrin intake. COMPARISON: None TECHNIQUE: Real-time imaging of the abdominal viscera. The technologist comments the examination was extremely limited secondary to the patient's body habitus and inability to recline. Extensive bowel gas also limited evaluation. FINDINGS: PANCREAS: The visualized portions of the head and body of the pancreas are unremarkable. ABDOMINAL AORTA: The proximal segment is normal in caliber. INFERIOR VENA CAVA: Visualized portions are normal. LIVER: The liver is not well-visualized secondary to overlying bowel gas. A discrete lesion cannot be completely excluded. No definite intrahepatic biliary dilatation within the limits of the exam. GALLBLADDER: The gallbladder is surgically absent. COMMON BILE DUCT: Normal in caliber measuring 0.4 cm in diameter. RIGHT KIDNEY: The right kidney is grossly unremarkable. The lower pole is obscured by overlying bowel gas.. No hydronephrosis. No renal calculi or focal parenchymal lesions. The kidney measures 9.2 cm in maximum dimension. LEFT KIDNEY: The left kidney cannot be visualized secondary to bowel gas. SPLEEN: Grossly unremarkable. The spleen measures 9.1 cm in maximum dimension. FREE FLUID: None. IMPRESSION: Limited study as described. No specific abnormal abdominal findings.
--- NOTE | 2016-09-21 15:32 | Cons- Nephrology ---
General Information and HPI Consulting Request Date of Consult: 09/21/16 Requested By: NALINI DOMINGUEZ,LUCIEN Shah Reason for Consult: SANDY Source of Information: patient, old records Exam Limitations: no limitations History of Present Illness: The patient is an 80-year-old woman with a past medical history most significant for Stage III CKD (baseline SCr ~1.4-1.6 - not known if proteinuric), breast cancer status post lumpectomy/chemotherapy/radiation therapy in 2012, lower extremity DVT status post anticoagulation (3 months), hyperlipidemia, osteoarthritis/spinal stenosis who presented on 09/19 with chest pain, jaw pain, and dizziness. On presentation, patient was found to have blood pressure 132/86 and a heart rate of 140. Labs was most significant for creatinine 1.7, sodium 132, troponin 0.10. There was some concern for pulmonary embolism for which she underwent if he/Q scan which was "intermediate probability." She was put on heparin. She was able to convert to sinus rhythm with first-degree AV block and had been maintained in sinus rhythm. Her troponin peaked at 0.267 since come down to 0.18. Her creatinine which was initially stable at 1.7 came down today to 1.3. No urinalysis. On U/S R kidney is 9.2cm and L kidney could not be visualized 2/ 2 bowel gas. It should be noted that the patient takes nonsteroidals at home ~5 days/week and has done so chronically for her osteoarthritis/spinal stenosis. She is currently chest pain free and has no shortness of breath. Allergies/Medications Allergies: Coded Allergies: hydrocodone (From VICODIN) (Intermediate, GI DISTRESS 09/19/16) Home Med List: Calcium Carbonate/Vitamin D3 (Caltrate 600 + D Tablet) 600 MG-800 TABLET 1 TAB PO DAILY SUPPLEMENT (Reported) Cholecalciferol (Vitamin D3) (Vitamin D3) 2,000 UNIT TABLET 1 TAB PO DAILY SUPPLEMENT (Reported) Cyanocobalamin (Vitamin B-12) 1,000 MCG TABLET 1 TAB PO SuTuThSa SUPPLEMENT ( Reported) Cyclobenzaprine HCl 5 MG TABLET 1 TAB PO TIDPRN PRN MUSCLE SPASMS (Reported) Diphenhydramine HCl 50 MG CAPSULE 1 CAP PO QPM SLEEP (Reported) Duloxetine HCl 60 MG CAPSULE.DR 1 CAP PO DAILY UNKNOWN (Reported) Esomeprazole Magnesium (Nexium 24HR) 22.3 MG CAPSULE. 1 CAP PO DAILY GI ( Reported) Krill/[place] Tim[place]-3/Dha/Epa/Lipids (Krill Oil 300 MG Softgel) 300 MG-90 MG-24 MG-50 MG -130 MG CAPSULE 1 CAP PO DAILY SUPPLEMENT (Reported) Meloxicam 15 MG TABLET 1 TAB PO DAILY PAIN (Reported) Simvastatin (Simvastatin*) 10 MG TABLET 1 TAB PO DAILY CHOLESTEROL (Reported) Tramadol HCl 50 MG TABLET 1 TAB PO BIDP PRN PAIN (Reported) Current Medications: Current Medications Sig/Sabine Start time Last Medication Dose Route Stop Time Status Admin Acetaminophen 650 MG Q6P PRN 09/19 1845 AC 09/20 PO 1444 Acetaminophen 325 MG Q6P PRN 09/19 1845 AC PO Acetaminophen 1,000 MG Q6P PRN 09/19 184 AC IV Atorvastatin Calcium 5 MG 1700 09/20 1700 AC 09/20 PO 1653 Cyanocobalamin 1,000 MCG SuTuThSa 09/20 1930 AC 09/20 PO 2146 Cyclobenzaprine HCl 5 MG TIDPRN PRN 09/19 1930 AC 09/21 PO 0804 Diphenhydramine HCl 50 MG QPM 09/19 2200 AC 09/20 PO 2146 Duloxetine HCl 60 MG DAILY 09/20 1000 AC 09/21 PO 0804 Heparin Sodium 25,000 UNIT Q24H 09/19 1645 AC 09/20 (Porcine) IV 1653 Sodium Chloride 500 ML Omeprazole 20 MG DAILY AC 09/20 0700 AC 09/21 PO 0654 Polyethylene Glycol 17 GM DAILY 09/20 1000 AC PO Sodium Chloride 1,000 ML DAILY 09/19 1845 AC 09/21 IV 0804 Tramadol HCl 50 MG Q6-PRN PRN 09/21 1330 AC 09/21 PO 1344 Review of Systems Review of Systems: Complete 14 point ROS neg except as per HPI Past History Travel History Traveled to [place] past 21 day No Medical History Blood Transfusion Hx: Yes Neurological: NONE EENT: NONE Cardiovascular: hyperlipidemia, DVT Respiratory: NONE Gastrointestinal: GERD Hepatic: NONE Renal: chronic kidney disease Musculoskeletal: NONE Psychiatric: NONE Endocrine: NONE Blood Disorders: NONE Cancer(s): NONE 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 Home Smoking Status: Unknown If Ever Smoked Functional Ability ADLs Independent: dressing, eating, toileting, bathing. Ambulation: independent IADLs Independent: food prep. Employment History Employment: Retired Exam & Diagnostic Data Vital Signs and I&O Vital Signs Date Time Temp Pulse Resp B/P Pulse O2 O2 Flow FiO2 Ox Delivery Rate 09/21 812 98.6 67 16 110/70 97 Room Air 09/21 0000 Room Air 09/21 0000 98.4 87 18 126/78 94 Room Air 09/20 1600 98.8 60 20 126/78 92 Room Air 09/20 1600 92 Room Air Intake & Output 09/21 0400 09/20 1600 09/20 0400 09/19 0400 Intake Total 351 024 5247 200 Output Total 650 Balance 151 604 9253 200 Intake, IV 170 136 740 Intake, Oral 700 400 700 200 Number 0 0 Bowel Movements Output, Urine 650 Patient 195 lb Weight Physical Exam: Gen - pleasant, NAD Head - NCAT Eyes - EOMI, anicteric sclera Neck - JVP not up CV - RRR Chest - clear Abd - soft, nontender Upper ext - no edema Lower ext - no edema Skin - no rash Neuro - AOX3 Results Pertinent Lab Results: Laboratory Tests 09/21 09/21 09/21 09/20 1317 0704 0115 1250 Chemistry Sodium (137 - 145 mmol/L) 136 L Potassium (3.5 - 5.1 mmol/L) 4.3 Chloride (98 - 107 mmol/L) 106 Carbon Dioxide (22 - 30 mmol/L) 24 Anion Gap (5 - 16) 6 BUN (7 - 17 mg/dL) 28 H Creatinine (0.5 - 1.0 mg/dL) 1.3 H Estimated GFR (>60 ml/min) 39 L BUN/Creatinine Ratio (7 - 25 %) 21.5 Hemoglobin A1c (4.2 - 5.8 %) Pending Phosphorus (2.5 - 4.5 mg/dL) 3.6 Magnesium (1.6 - 2.3 mg/dL) 2.1 Coagulation APTT (25 - 37 SEC) 72 H 74 H 79 H Hematology CBC w Diff NO MAN DIFF REQ WBC (4.8 - 10.8 /CUMM) 6.5 RBC (4.20 - 5.40 /CUMM) 3.46 L Hgb (12.0 - 16.0 G/DL) 10.4 L Hct (37 - 47 %) 32.1 L MCV (81.0 - 99.0 FL) 92.8 MCH (27.0 - 31.0 PG) 29.9 RDW (11.5 - 14.5 %) 15.5 H Plt Count (130 - 400 /CUMM) 211 MPV (7.4 - 10.4 FL) 7.8 Gran % (42.2 - 75.2 %) 72.1 Lymphocytes % (20.5 - 51.1 %) 14.6 L Monocytes % (1.7 - 9.3 %) 7.6 Eosinophils % (0 - 5 %) 5.0 Basophils % (0.0 - 2.0 %) 0.7 Absolute Granulocytes (1.4 - 6.5 /CUMM) 4.7 Absolute Lymphocytes (1.2 - 3.4 /CUMM) 0.9 L Absolute Monocytes (0.10 - 0.60 /CUMM) 0.5 Absolute Eosinophils (0.0 - 0.7 /CUMM) 0.3 Absolute Basophils (0.0 - 0.2 /CUMM) 0 PUBS MCHC (33.0 - 37.0 G/DL) 32.3 L 09/20 09/20 09/19 0425 0425 2345 Chemistry Sodium (137 - 145 mmol/L) 138 Potassium (3.5 - 5.1 mmol/L) 4.5 Chloride (98 - 107 mmol/L) 103 Carbon Dioxide (22 - 30 mmol/L) 26 Anion Gap (5 - 16) 9 BUN (7 - 17 mg/dL) 39 H Creatinine (0.5 - 1.0 mg/dL) 1.7 H Estimated GFR (>60 ml/min) 29 L BUN/Creatinine Ratio (7 - 25 %) 22.9 Magnesium (1.6 - 2.3 mg/dL) 3.2 H Troponin I (< 0.11 ng/ml) 0.18 *H Coagulation APTT (25 - 37 SEC) > 120 *H Hematology CBC w Diff NO MAN DIFF REQ WBC (4.8 - 10.8 /CUMM) 8.1 RBC (4.20 - 5.40 /CUMM) 3.83 L Hgb (12.0 - 16.0 G/DL) 11.5 L Hct (37 - 47 %) 35.3 L MCV (81.0 - 99.0 FL) 92.3 MCH (27.0 - 31.0 PG) 30.0 RDW (11.5 - 14.5 %) 15.1 H Plt Count (130 - 400 /CUMM) 261 MPV (7.4 - 10.4 FL) 8.1 Gran % (42.2 - 75.2 %) 66.6 Lymphocytes % (20.5 - 51.1 %) 19.2 L Monocytes % (1.7 - 9.3 %) 8.1 Eosinophils % (0 - 5 %) 5.6 H Basophils % (0.0 - 2.0 %) 0.5 Absolute Granulocytes (1.4 - 6.5 /CUMM) 5.4 Absolute Lymphocytes (1.2 - 3.4 /CUMM) 1.5 Absolute Monocytes (0.10 - 0.60 /CUMM) 0.7 H Absolute Eosinophils (0.0 - 0.7 /CUMM) 0.4 Absolute Basophils (0.0 - 0.2 /CUMM) 0 PUBS MCHC (33.0 - 37.0 G/DL) 32.4 L 09/19 09/19 09/19 1928 1517 1335 Chemistry Lactic Acid Cancelled Troponin I (< 0.11 ng/ml) 0.26 *H Coagulation PT (9.4 - 12.5 SEC) 10.9 INR (0.90 - 1.19) 1.04 APTT (25 - 37 SEC) 28 09/19 1217 Chemistry Sodium (137 - 145 mmol/L) 132 L Potassium (3.5 - 5.1 mmol/L) 4.6 Chloride (98 - 107 mmol/L) 103 Carbon Dioxide (22 - 30 mmol/L) 24 Anion Gap (5 - 16) 5 BUN (7 - 17 mg/dL) 43 H Creatinine (0.5 - 1.0 mg/dL) 1.7 H Estimated GFR (>60 ml/min) 29 L BUN/Creatinine Ratio (7 - 25 %) 25.3 H Glucose (65 - 99 mg/dL) 83 Lactic Acid (0.7 - 2.1 mmol/L) 1.0 Calcium (8.4 - 10.2 mg/dL) 8.9 Total Bilirubin (0.2 - 1.3 mg/dL) 0.6 AST (14 - 36 U/L) 23 ALT (9 - 52 U/L) 37 Alkaline Phosphatase (<127 U/L) 70 Troponin I (< 0.11 ng/ml) 0.10 Sgq-P-Simgrenhnhr Pept (<125 pg/mL) 1610 H Total Protein (6.3 - 8.2 g/dL) 6.3 Albumin (3.5 - 5.0 g/dL) 3.8 Globulin (1.9 - 4.2 gm/dL) 2.5 Albumin/Globulin Ratio (1.1 - 2.2 %) 1.5 TSH (0.270 - 4.200 uIU/mL) 2.320 Free T4 (0.85 - 1.93 ng/dL) 1.21 Hematology CBC w Diff NO MAN DIFF REQ WBC (4.8 - 10.8 /CUMM) 8.3 RBC (4.20 - 5.40 /CUMM) 4.04 L Hgb (12.0 - 16.0 G/DL) 12.2 Hct (37 - 47 %) 37.3 MCV (81.0 - 99.0 FL) 92.3 MCH (27.0 - 31.0 PG) 30.2 RDW (11.5 - 14.5 %) 14.9 H Plt Count (130 - 400 /CUMM) 280 MPV (7.4 - 10.4 FL) 7.9 Gran % (42.2 - 75.2 %) 77.4 H Lymphocytes % (20.5 - 51.1 %) 12.1 L Monocytes % (1.7 - 9.3 %) 7.7 Eosinophils % (0 - 5 %) 2.5 Basophils % (0.0 - 2.0 %) 0.3 Absolute Granulocytes (1.4 - 6.5 /CUMM) 6.4 Absolute Lymphocytes (1.2 - 3.4 /CUMM) 1.0 L Absolute Monocytes (0.10 - 0.60 /CUMM) 0.6 Absolute Eosinophils (0.0 - 0.7 /CUMM) 0.2 Absolute Basophils (0.0 - 0.2 /CUMM) 0 PUBS MCHC (33.0 - 37.0 G/DL) 32.8 L Imaging/Other Studies: EXAM TYPE: NUC - LUNG SCAN (V/Q) PULMONARY VENTILATION/PERFUSION STUDY: CLINICAL INDICATION: No atrial fibrillation. Shortness of breath. COMPARISON: No previous lung scan is available for comparison. A chest radiograph dated 01/01/2017, the same date as this lung scan, is available for comparison. PROCEDURE: Following the inhalation of 14.7 millicuries technetium 99m DTPA aerosol, multiple images of the chest were obtained in multiple projections. Subsequently, following the intravenous administration of 4.1 millicuries technetium 99m MAA, images of the chest were again obtained in multiple projections using a gamma scintophoto camera. VENTILATION IMAGES: There is homogeneous distribution of activity in the lungs. No focal ventilatory defects are noted. There is no significant retained activity in the large airways. PERFUSION IMAGES: A segmental perfusion defect is present involving the apical posterior segment of the left upper lobe. No other perfusion abnormalities are present. Chest radiograph dated 09/19/2016 shows no significant abnormality in the left lung apex that corresponds to the perfusion abnormality described above. IMPRESSION: Intermediate probability of pulmonary embolism. A mismatched segmental perfusion defect is present in the left upper lobe as described above. U/S RIGHT KIDNEY: The right kidney is grossly unremarkable. The lower pole is obscured by overlying bowel gas.. No hydronephrosis. No renal calculi or focal parenchymal lesions. The kidney measures 9.2 cm in maximum dimension. LEFT KIDNEY: The left kidney cannot be visualized secondary to bowel gas. Assessment/Plan Assessment/Recommendations Assessment: Stage III CKD - Given longstanding NSAID use without other significant comorbidities, this is likely the cause of her chronic kidney disease which has been longstanding based on [facility] records. Should get UA for further information. Should also rule out paraprotein. If she ends up going for a [facility] to evaluate cardiac causes of her chest pain, she is at risk for contrast induced nephropathy and may benefit from pre-test hydration and N- acetylcysteine. SANDY - Likely 2/2 NSAID use just prior to coming to the hospital. This has resolved. As she is at her baseline SCr and is eating/drinking, no clear need for IVF. Recommendations: -Would check UA with microscopic analysis -[facility] and [facility] -Would quantify proteinuria if present with spot urine protein, microalbumin, and creatinine -Would stop IVF if eating/drinking OK -If does need to go for [facility], would pre-hydrate with 500cc NS (125cc/hr x4 hours) and give 1200mg oral N-acetylcysteine BID starting the day before -Would avoid NSAID's in the future if possible -Would check 25 Vit D, PTH, Phos Please call [phone] with ?'s
[2016-09-21 16:00] VITALS: BP 132/84
--- NOTE | 2016-09-21 22:09 | PN- Cardiology ---
Subjective Subjective: No complaints. Denies any chest discomfort, palpitations, shortness of breath, lower extremity discomfort, etc. Telemetry reveals sinus rhythm with a heart rate between 64-84 bpm. Objective Vital Signs and I&Os Vital Signs Date Time Temp Pulse Resp B/P Pulse O2 O2 Flow FiO2 Ox Delivery Rate 09/21 1600 94 Room Air 09/21 1600 98.1 72 18 132/84 94 Room Air 09/21 08 98.6 67 16 110/70 97 Room Air 09/21 0000 Room Air 09/21 0000 98.4 87 18 126/78 94 Room Air Intake & Output 09/21 1600 09/21 0800 09/21 0000 09/20 1600 09/20 0809/20 0000 Intake Total 770 586 457 3614 100 200 Output Total 650 Balance 120 329 887 3032 100 200 Intake, IV 170 0 136 740 Intake, Oral 600 100 400 600 100 200 Number 0 0 Bowel Movements Output, Urine 650 Patient 195 lb Weight Physical Exam: On physical examination she is a well-developed, overweight elderly female in no acute distress with nasal oxygen in place. Vital signs: See above. HEENT: Normocephalic, atraumatic, EOMI, moist mucous membranes. Neck: No JVD, no bruits. Lungs: Clear to auscultation bilaterally. Heart: S1, S2 with no murmur, gallop, or rub appreciated. PMI fifth ICS at MCL. Abdomen: Soft, nontender, positive bowel sounds. Extremities: No edema. Peripheral pulses: Symmetrical and intact. Current Medications: Current Medications Sig/Sabine Start time Last Medication Dose Route Stop Time Status Admin Acetaminophen 650 MG Q6P PRN 09/19 1845 AC 09/20 PO 1444 Acetaminophen 325 MG Q6P PRN 09/19 1845 AC PO Acetaminophen 1,000 MG Q6P PRN 09/19 1845 AC IV Atorvastatin Calcium 5 MG 1700 09/20 1700 AC 09/21 PO 1648 Cyanocobalamin 1,000 MCG SuTuThSa 09/21 2138 AC PO Cyanocobalamin 1,000 MCG SuTuThSa 09/20 193 DC 09/20 PO 214 Cyclobenzaprine HCl 5 MG TIDPRN PRN 09/19 1930 AC 09/21 PO 0804 Diphenhydramine HCl 50 MG QPM 09/19 2200 AC 04/08 PO 2146 Duloxetine HCl 60 MG DAILY 09/20 1000 AC 09/21 PO 0804 Heparin Sodium 25,000 UNIT Q24H 09/19 1645 AC 09/21 (Porcine) IV 1648 Sodium Chloride 500 ML Omeprazole 20 MG DAILY AC 09/20 0700 AC 09/21 PO 0654 Polyethylene Glycol 17 GM DAILY 09/20 1000 AC PO Sodium Chloride 1,000 ML DAILY 09/19 1845 AC 09/21 IV 0804 Tramadol HCl 50 MG Q6-PRN PRN 09/21 1330 AC 09/21 PO 1344 Results Last 48 Hrs of Labs/Mics: Laboratory Tests 09/21/16 1317: APTT 72 H, CBC w Diff NO MAN DIFF REQ, RBC 3.46 L, MCV 92.8, MCH 29.9, RDW 15.5 H, MPV 7.8, Gran % 72.1, Lymphocytes % 14.6 L, Monocytes % 7.6, Eosinophils % 5.0, Basophils % 0.7, Absolute Granulocytes 4.7, Absolute Lymphocytes 0.9 L, Absolute Monocytes 0.5, Absolute Eosinophils 0.3, Absolute Basophils 0, PUBS MCHC 32.3 L 09/21/16 0704: Anion Gap 6, Estimated GFR 39 L, BUN/Creatinine Ratio 21.5, Hemoglobin A1c Pending, Phosphorus 3.6, Magnesium 2.1 09/21/16 0115: APTT 74 H 09/20/16 1250: APTT 79 H 09/20/16 0425: Magnesium 3.2 H, Troponin I 0.18 *H 09/20/16 0425: Anion Gap 9, Estimated GFR 29 L, BUN/Creatinine Ratio 22.9, CBC w Diff NO MAN DIFF REQ, RBC 3.83 L, MCV 92.3, MCH 30.0, RDW 15.1 H, MPV 8.1, Gran % 66.6, Lymphocytes % 19.2 L, Monocytes % 8.1, Eosinophils % 5.6 H, Basophils % 0.5, Absolute Granulocytes 5.4, Absolute Lymphocytes 1.5, Absolute Monocytes 0.7 H, Absolute Eosinophils 0.4, Absolute Basophils 0, PUBS MCHC 32.4 L 09/19/16 2345: APTT > 120 *H Recent Imaging Studies: Abdominal ultrasound (09/21/2016): PANCREAS: The visualized portions of the head and body of the pancreas are unremarkable. ABDOMINAL AORTA: The proximal segment is normal in caliber. INFERIOR VENA CAVA: Visualized portions are normal. LIVER: The liver is not well-visualized secondary to overlying bowel gas. A discrete lesion cannot be completely excluded. No definite intrahepatic biliary dilatation within the limits of the exam. GALLBLADDER: The gallbladder is surgically absent. COMMON BILE DUCT: Normal in caliber measuring 0.4 cm in diameter. RIGHT KIDNEY: The right kidney is grossly unremarkable. The lower pole is obscured by overlying bowel gas.. No hydronephrosis. No renal calculi or focal parenchymal lesions. The kidney measures 9.2 cm in maximum dimension. LEFT KIDNEY: The left kidney cannot be visualized secondary to bowel gas. SPLEEN: Grossly unremarkable. The spleen measures 9.1 cm in maximum dimension. FREE FLUID: None. IMPRESSION: Limited study as described. No specific abnormal abdominal findings. Assessment/Plan Assessment/Plan Mrs. Galdamez is an elderly female with a history of obesity, hypertension, dyslipidemia, previous "provoked" DVT being treated for breast carcinoma who presented with new onset atrial fibrillation with a rapid ventricular response secondary to a provoked pulmonary embolism following a fall/immobility for the past several weeks. Fortunately, she had only a modest troponin elevation which is likely on the basis of the pulmonary embolism, chronic kidney disease, demand ischemia etc. Converted back to sinus rhythm with first-degree AV block and has been maintaining sinus rhythm since that time with an acceptable heart rate. Her renal function has also continued to improve. Recommendations: * Continue on telemetry. * IV heparin followed by the initiation of a factor X a inhibitor or warfarin. * Echocardiogram in a.m. to assess right ventricular size and function, estimated PA systolic pressure, atrial size, left ventricular function, etc. * Follow-up on nephrology recommendations. * Follow-up glycosylated hemoglobin A1c, when available. * DVT prophylaxis being addressed by for anticoagulation for atrial fibrillation /pulmonary embolism. Further recommendations will follow. Continue telemetry? Yes Further recommendations will follow. Continue telemetry? Yes
[2016-09-22 00:50] VITALS: BP 126/68
[2016-09-22 01:09] LABS: PTT 72 SEC (25-37)
--- NOTE | 2016-09-22 07:26 | PN- Housestaff ---
Subjective Follow-up For: - Pulmonary embolism - A. fib Complaints: no complaints Tele-Events Since Last Visit: Normal sinus rhythm, heart rate 60-70, no overnight events were noted. Subjective: Patient comfortable this morning. Did not have any complaints. Vitals stable. Oxygen saturation above 92% on room air. Did not have any chest pain, shortness of breath or palpitations. Review of Systems Constitutional: Reports: see HPI. Objective Last 24 Hrs of Vital Signs/I&O Vital Signs Date Time Temp Pulse Resp B/P Pulse O2 O2 Flow FiO2 Ox Delivery Rate 09/22 0050 98.7 72 20 126/68 96 Room Air 09/22 0000 Room Air 09/21 1600 94 Room Air 09/21 1600 98.1 72 18 132/84 94 Room Air 09/21 0813 98.6 67 16 110/70 97 Room Air Intake & Output 09/22 0800 09/22 0000 09/21 1600 Intake Total 139.2 1000 770 Output Total 550 650 Balance -410.8 1000 120 Intake, IV 139.2 450 170 Intake, Oral 550 600 Number 0 Bowel Movements Output, Urine 550 650 Physical Exam General Appearance: No Acute Distress Other Physical Findings: General Exam: AAOx3, No acute distress, Skin: No rashes, no breakdown HEENT: PERRLA, EOMI Neck: Supple, No JVD No cervical lymphadenopathy CVS: Reg Rate, Normal S1,S2, No MGR Resp: Normal air entry, no ronchi/rales Abdomen: Soft, No tenderness, Normal Bowel Sounds Neuro: Normal Speech, Strength 5/5 b/l x 4 extremities, Sensation intact, CN III -XII NL, Reflexes 2+ Extremities: No cyanosis, pedal edema Current Medications: Current Medications Sig/Sabine Start time Last Medication Dose Route Stop Time Status Admin Acetaminophen 650 MG Q6P PRN 09/19 184 AC 09/20 PO 1444 Acetaminophen 325 MG Q6P PRN 09/19 184 AC PO Acetaminophen 1,000 MG Q6P PRN 09/19 184 AC IV Atorvastatin Calcium 5 MG 1700 09/20 1700 AC 09/21 PO 1648 Cyanocobalamin 1,000 MCG SuTuThSa 09/21 2139 AC 09/21 PO 2207 Cyanocobalamin 1,000 MCG SuTuThSa 09/20 1930 DC 09/20 PO 2146 Cyclobenzaprine HCl 5 MG TIDPRN PRN 09/19 1930 AC 09/21 PO 2207 Diphenhydramine HCl 50 MG QPM 09/19 2200 AC 09/21 PO 220 Duloxetine HCl 60 MG DAILY 09/20 1000 AC 09/21 PO 0804 Heparin Sodium 25,000 UNIT Q24H 09/19 1645 AC 09/21 (Porcine) IV 1648 Sodium Chloride 500 ML Omeprazole 20 MG DAILY AC 09/20 0700 AC 09/22 PO 0614 Polyethylene Glycol 17 GM DAILY 09/20 1000 AC PO Sodium Chloride 1,000 ML DAILY 09/19 1845 AC 09/21 IV 0804 Tramadol HCl 50 MG Q6-PRN PRN 09/21 1330 AC 09/21 PO 1344 Last 24 Hrs of Lab/Idris Results Last 24 Hrs of Labs/Mics: Laboratory Tests 09/22/16 0650: Prot Electrophoresis Pending, Total Protein (PEP) Pending, Albumin % (PEP) Pending, Meflq-2-Jobdhykdi Pending, Oghfx-0-Ffulzfmuf Pending, Vjiu-3-Szzitwbk Pending, Dpht-9-Jnurshdy Pending, Gamma Globulins Pending, Abnorm Protein Band 1 Pending, Abnorm Protein Band 2 Pending, Abnorm Protein Band 3 Pending 09/22/16 0650: Sodium Pending, Potassium Pending, Chloride Pending, Carbon Dioxide Pending, Anion Gap Pending, BUN Pending, Creatinine Pending, BUN/Creatinine Ratio Pending , Hemoglobin A1c Pending, Phosphorus Pending, Magnesium Pending, 25-OH Vitamin D Total Pending, PTH Intact Pending, CBC w Diff Pending, WBC Pending, RBC Pending, Hgb Pending, Hct Pending, MCV Pending, MCH Pending, RDW Pending, Plt Count Pending, MPV Pending, PUBS MCHC Pending 09/22/16 0040: APTT 72 H 09/21/16 1317: APTT 72 H, CBC w Diff NO MAN DIFF REQ, RBC 3.46 L, MCV 92.8, MCH 29.9, RDW 15.5 H, MPV 7.8, Gran % 72.1, Lymphocytes % 14.6 L, Monocytes % 7.6, Eosinophils % 5.0, Basophils % 0.7, Absolute Granulocytes 4.7, Absolute Lymphocytes 0.9 L, Absolute Monocytes 0.5, Absolute Eosinophils 0.3, Absolute Basophils 0, PUBS MCHC 32.3 L Assessment/Plan Assessment: 80 YO F with a PMH of breast cancer s/p chemotherapy and radiation, hyperlipidemia is being evaluated for chest pain, jaw pain, palpitations with VQ scan suggestive of possible acute PE and new onset atrial fibrillation. At the time of admission, vitals-temperature 96.6, pulse rate 140 (dropped down to 70), respiration 20, blood pressure 132/86, pulse ox 99% on room air ( currently 98% on 2 L nasal cannula). Lab findings indicated WBC 8.3, hemoglobin 12.2, hematocrit 37.3, platelets 280. Electrolytes-sodium 132, potassium 4.6, BUN 43, serum creatinine 1.7 (baseline unknown). ProBNP 1610, TSH 2.32, free T4 1 0.21. Radiological findings-chest x-ray did not show any acute pulmonary changes. VQ scan revealed intermediate probability for PE. Differential diagnosis: #1 acute pulmonary embolism #2 acute coronary syndrome # 3 pneumonia Below is the problem list and plan: #1 chest discomfort-differentials include acute PE, myocardial infarction. EKG revealed atrial fibrillation which could likely be due to acute PE. Serial troponins were positive, probably secondary to acute coronary event on demand ischemia on right heart strain. May start eliquis today after discussing with Dr. Howe. No rate controlling meds at this time. Can consider this as provoked DVT, and need anticoagulation for at least 3 months. #2 atrial fibrillation- Currently NSR. likely secondary to acute PE and myocardial infarction. Patient currently on IV heparin. #3 abnormal kidney action -chronic kidney disease. Likely due to excessive NSAID use and/or other causes such as HTN. Await results from [facility]. Discontinue fluids. #4 DVT prophylaxis-IV heparin Problem List: 1. Paroxysmal atrial fibrillation 2. Pulmonary embolism Pain Ratin Pain Location: none Pain Goal: Pain 4 or less Pain Plan: tylenol prn Tomorrow's Labs & Rationales: no labs necessary. Pt to be discharged.
[2016-09-22 07:53] LABS: ABSOLUTE BASOPHIL COUNT 0 /CUMM (0.0-0.2); ABSOLUTE EOSINOPHIL COUNT 0.4 /CUMM (0.0-0.7); ABSOLUTE LYMPH COUNT 0.9 /CUMM (1.2-3.4); ABSOLUTE MONOCYTE COUNT 0.3 /CUMM (0.10-0.60); BASOPHIL % 0.8 % (0.0-2.0); EOSINOPHIL % 6.9 % (0-5); GRANULOCYTE % 70.1 % (42.2-75.2); HEMATOCRIT 30.9 % (37-47); MEAN CORPUSCULAR HGB 30.4 PG (27.0-31.0); MEAN CORPUSCULAR VOLUME 92.2 FL (81.0-99.0); MEAN PLATELET VOLUME 7.9 FL (7.4-10.4); PLATELET COUNT 204 /CUMM (130-400); RBC DISTRIBUTION WIDTH 15.1 % (11.5-14.5); RED BLOOD CELL CT 3.36 /CUMM (4.20-5.40); WHITE BLOOD CELL COUNT 5.7 /CUMM (4.8-10.8)
[2016-09-22 08:00] VITALS: BP 120/70
--- NOTE | 2016-09-22 08:16 | Patient Discharge Instructions ---
Discharge Instructions General Discharge Information You were seen/treated for: - Pulmonary emboliosm - Atrial fibrillation Acute Coronary Syndrome Inclusion Criteria At DC or during hospital stay patient has or had the following: ACS DIAGNOSIS No Discharge Core Measures Meds if any: Prescribed or Continued at Discharge Meds if any: NOT Prescribed or Continued at Discharge Congestive Heart Failure Inclusion Criteria At DC or during hospital stay patient has or had the following: CHF DIAGNOSIS No Discharge Core Measures Meds if any: Prescribed or Continued at Discharge Meds if any: NOT Prescribed or Continued at Discharge Cerebrovascular accident Inclusion Criteria At DC or during hospital stay patient has or had the following: CVA/TIA Diagnosis No Discharge Core Measures Meds if any: Prescribed or Continued at Discharge Meds if any: NOT Prescribed or Continued at Discharge Venous thromboembolism Inclusion Criteria VTE Diagnosis Yes VTE Type Pulmonary Embolism VTE Confirmed by (Test) LUNG SCAN (V/Q) Discharge Core Measures - Per Current guidelines, there needs to be overlap - treatment for the first 5 days of Warfarin therapy. - If discharged on Warfarin prior to 5 days of - overlap therapy, the patient will need to be - assessed for post discharge needs including - *Post discharge parental anticoagulation - *Warfarin and/or parental anticoagulation education - *Follow up date to check INR post discharge At least 5 days overlap therapy as Inpatient No Meds if any: Prescribed or Continued at Discharge Note: Overlap Therapy is Warfarin and Anticoagulant Meds if any: NOT Prescribed or Continued at Discharge
[2016-09-22 14:12] LABS: PTT 66 SEC (25-37)
[2016-09-22 15:56] VITALS: BP 104/70
--- NOTE | 2016-09-22 19:00 | ECHOCARDIOGRAM REPORT ---
CHIRSTY URBINA Age: 81 : 1935 Gender: F Exam Date: 09/22/2016 16:07 Exam Location: [place] Ht (in): 60 Wt (lb): 195 BSA: 1.98 BP: 120 / 70 Ordering Physician: VISHAL IVAN MD Referring Physician: Suman Howe MD Technologist: Lindy Mcarthur [facility] [place] Room Number: 180-02 Indications: ACUTE PULMONARY EMBOLISM Rhythm: Sinus Technical Quality: Technically difficult study, Poor FINDINGS Left Ventricle Normal size left ventricle. Severe concentric left ventricular hypertrophy. Normal left ventricular wall motion. Normal left ventricular ejection fraction visually estimated at 65%. Abnormal relaxation filling pattern of the left ventricle for age (stage 1 diastolic dysfunction). Right Ventricle Right ventricle at upper limits of normal. Right Atrium Normal right atrial size. Left Atrium Normal left atrial size. Mitral Valve Mild mitral annular calcification. Structurally normal mitral valve. Mild mitral regurgitation. Aortic Valve Aortic valve not well visualized. Mild aortic sclerosis. No aortic valve stenosis or regurgitation. Tricuspid Valve Structurally normal tricuspid valve. Trace tricuspid regurgitation. No evidence of pulmonary hypertension. Right ventricular systolic pressure estimated to be within the normal range at 10 mmHg. Pulmonic Valve Pulmonic valve not well visualized. No pulmonic regurgitation. Pericardium No pericardial effusion. Great Vessels Normal size aortic root. CONCLUSIONS Normal size left ventricle. Severe concentric left ventricular hypertrophy. Normal left ventricular wall motion. Normal left ventricular ejection fraction visually estimated at 65%. Abnormal relaxation filling pattern of the left ventricle for age (stage 1 diastolic dysfunction). Right ventricle at upper limits of normal. Normal atrial size. Mild mitral regurgitation. Trace tricuspid regurgitation. No evidence of pulmonary hypertension. Suman Howe M.D. (Electronically Signed) Final Date: 22 September 2016 18:59 MEASUREMENTS (Male / Female) Normal Values 2D ECHO LV Diastolic Diameter PLAX 4.0 cm 4.2 - 5.9 / 3.9 - 5.3 cm LV Systolic Diameter PLAX 2.4 cm 2.1 - 4.0 cm LV Fractional Shortening PLAX 40.0 % 25 - 46 % LV Ejection Fraction 2D Teich 71.2 % IVS Diastolic Thickness 1.7 cm LVPW Diastolic Thickness 1.7 cm LV Relative Wall Thickness 0.8 RV Internal Dim ED PLAX 3.1 cm 1.9 - 3.8 cm LVOT Diameter 2.1 cm Aortic Root Diameter 3.0 cm LA Systolic Diameter LX 4.4 cm 3.0 - 4.0 / 2.7 - 3.8 cm LA Volume 30.0 cm 18 - 58 / 22 - 52 cm Ascending Aorta Diameter 3.3 cm DOPPLER AV Peak Velocity 145.0 cm/s AV Peak Gradient 8.4 mmHg AV Mean Velocity 109.0 cm/s AV Mean Gradient 5.0 mmHg AV Velocity Time Integral 28.8 cm LVOT Peak Velocity 98.6 cm/s LVOT Peak Gradient 3.9 mmHg LVOT Mean Velocity 74.5 cm/s LVOT Mean Gradient 2.0 mmHg LVOT Velocity Time Integral 21.2 cm LVOT Stroke Volume 73.4 cm AV Area Cont Eq vti 2.5 cm AV Area Cont Eq pk 2.4 cm MV Peak Velocity 121.0 cm/s MV Peak Gradient 5.9 mmHg MV Mean Velocity 67.0 cm/s MV Mean Gradient 2.0 mmHg Mitral E Point Velocity 60.2 cm/s Mitral A Point Velocity 115.0 cm/s Mitral E to A Ratio 0.5 MV PHT Velocity 69.2 cm/s MV Deceleration [place] 154.0 cm/s MV Pressure Half Time 134.8 ms MV Area PHT 1.6 cm MV Deceleration Time 478.0 ms TR Peak Velocity 108.0 cm/s TR Peak Gradient 4.7 mmHg Right Atrial Pressure 5.0 mmHg Pulmonary Artery Systolic Pressu 9.7 mmHg Right Ventricular Systolic Press 9.7 mmHg PV Peak Velocity 94.0 cm/s PV Peak Gradient 3.5 mmHg PV Mean Velocity 52.9 cm/s PV Mean Gradient 1.0 mmHg PV Velocity Time Integral 26.3 cm LV E' Lateral Velocity 6.2 cm/s Mitral E to LV E' Lateral Ratio 9.7 LV E' Septal Velocity 10.0 cm/s Mitral E to LV E' Septal Ratio 6.0
--- NOTE | 2016-09-22 19:47 | PN- Cardiology ---
Subjective Subjective: No complaints. Denies any chest discomfort, palpitations, shortness of breath, lower extremity discomfort, etc. Objective Vital Signs and I&Os Vital Signs Date Time Temp Pulse Resp B/P Pulse O2 O2 Flow FiO2 Ox Delivery Rate 09/22 1556 99.3 83 20 104/70 94 Room Air 09/22 0800 98.1 69 18 120/70 94 Room Air 09/22 0050 98.7 72 20 126/68 96 Room Air 09/22 0000 Room Air Intake & Output 09/22 1600 09/22 0809/22 0000 09/21 1600 09/21 0809/21 0000 Intake Total 800 139.2 1000 770 100 536 Output Total 550 650 Balance 800 -410.8 1000 120 100 536 Intake, IV 139.2 450 170 0 136 Intake, Oral 800 550 600 100 400 Number 1 0 0 0 Bowel Movements Output, Urine 550 650 Physical Exam: On physical examination she is a well-developed, overweight elderly female in no acute distress with nasal oxygen in place. Vital signs: See above. HEENT: Normocephalic, atraumatic, EOMI, moist mucous membranes. Neck: No JVD, no bruits. Lungs: Clear to auscultation bilaterally. Heart: S1, S2 with no murmur, gallop, or rub appreciated. PMI fifth ICS at MCL. Abdomen: Soft, nontender, positive bowel sounds. Extremities: No edema. Peripheral pulses: Symmetrical and intact. Current Medications: Current Medications Sig/Sabine Start time Last Medication Dose Route Stop Time Status Admin Acetaminophen 650 MG Q6P PRN 09/19 184 AC 09/20 PO 1444 Acetaminophen 325 MG Q6P PRN 09/19 184 AC PO Acetaminophen 1,000 MG Q6P PRN 09/19 184 AC IV Apixaban 10 MG BID 09/22 2199 AC PO 09/29 1001 Atorvastatin Calcium 5 MG 1700 09/20 1700 AC 09/22 PO 193 Cyanocobalamin 1,000 MCG SuTuThSa 09/21 2138 AC 09/21 PO 2206 Cyanocobalamin 1,000 MCG SuTuThSa 09/20 1929 DC 09/20 PO 214 Cyclobenzaprine HCl 5 MG TIDPRN PRN 09/19 193 AC 09/21 PO 2206 Diphenhydramine HCl 50 MG QPM 09/19 2199 AC 09/21 PO 2207 Duloxetine HCl 60 MG DAILY 09/20 1000 AC 09/22 PO 0855 Heparin Sodium 25,000 UNIT Q24H 09/19 1645 AC 09/21 (Porcine) IV 09/22 2199 164 Sodium Chloride 500 ML Omeprazole 20 MG DAILY AC 09/20 0700 AC 09/22 PO 0614 Polyethylene Glycol 17 GM DAILY 09/20 1000 AC 09/22 PO 0855 Sodium Chloride 1,000 ML DAILY 09/19 1845 DC 09/21 IV 0804 Tramadol HCl 50 MG Q6-PRN PRN 09/21 1330 AC 09/21 PO 1344 Results Last 48 Hrs of Labs/Mics: Laboratory Tests 09/22/16 1314: APTT 66 H 09/22/16 1000: Ref Lab Test Result Pending 09/22/16 0710: Urine Color YEL, Urine Clarity CLEAR, Urine pH 7.0, Ur Specific [place] 1.010, Urine Protein NEG, Urine Ketones NEG, Urine Nitrite NEG, Urine Bilirubin NEG, Urine Urobilinogen 0.2, Ur Leukocyte Esterase NEG, Ur Microscopic EXAM NOT REQUIRED, Urine Hemoglobin NEG, Urine Glucose NEG 09/22/16 0650: Prot Electrophoresis Pending, Total Protein (PEP) Pending, Albumin % (PEP) Pending, Yqgwy-5-Foawesrmx Pending, Bgzeu-0-Wnqkvzcnq Pending, Rlci-0-Rercsrbq Pending, Rbtl-6-Yhnfjaib Pending, Gamma Globulins Pending, Abnorm Protein Band 1 Pending, Abnorm Protein Band 2 Pending, Abnorm Protein Band 3 Pending 09/22/16 0650: Anion Gap 7, Estimated GFR 39 L, BUN/Creatinine Ratio 16.9, Hemoglobin A1c 6.1 H, Phosphorus 3.3, Magnesium 2.1, 25-OH Vitamin D Total 33.0, PTH Intact 186.9 H, CBC w Diff NO MAN DIFF REQ, RBC 3.36 L, MCV 92.2, MCH 30.4, RDW 15.1 H, MPV 7.9, Gran % 70.1, Lymphocytes % 16.4 L, Monocytes % 5.8, Eosinophils % 6.9 H, Basophils % 0.8, Absolute Granulocytes 4.0, Absolute Lymphocytes 0.9 L, Absolute Monocytes 0.3, Absolute Eosinophils 0.4, Absolute Basophils 0, PUBS MCHC 33.0 09/22/16 0040: APTT 72 H 09/21/16 1317: APTT 72 H, CBC w Diff NO MAN DIFF REQ, RBC 3.46 L, MCV 92.8, MCH 29.9, RDW 15.5 H, MPV 7.8, Gran % 72.1, Lymphocytes % 14.6 L, Monocytes % 7.6, Eosinophils % 5.0, Basophils % 0.7, Absolute Granulocytes 4.7, Absolute Lymphocytes 0.9 L, Absolute Monocytes 0.5, Absolute Eosinophils 0.3, Absolute Basophils 0, PUBS MCHC 32.3 L 09/21/16 0704: Anion Gap 6, Estimated GFR 39 L, BUN/Creatinine Ratio 21.5, Hemoglobin A1c 6.2 H, Phosphorus 3.6, Magnesium 2.1 09/21/16 0115: APTT 74 H Recent Imaging Studies: Echocardiogram (09/22/2016): Normal size left ventricle. Severe concentric left ventricular hypertrophy. Normal left ventricular wall motion. Normal left ventricular ejection fraction visually estimated at 65%. Abnormal relaxation filling pattern of the left ventricle for age (stage 1 diastolic dysfunction). Right ventricle at upper limits of normal. Normal atrial size. Mild mitral regurgitation. Trace tricuspid regurgitation. No evidence of pulmonary hypertension. Assessment/Plan Assessment/Plan Mrs. Galdamez is an elderly female with a history of obesity, hypertension, dyslipidemia, previous "provoked" DVT being treated for breast carcinoma who presented with new onset atrial fibrillation with a rapid ventricular response secondary to a provoked pulmonary embolism following a fall/immobility for the past several weeks. Fortunately, she had only a modest troponin elevation which is likely on the basis of the pulmonary embolism, chronic kidney disease, demand ischemia etc. Converted back to sinus rhythm with first-degree AV block and has been maintaining sinus rhythm since that time with an acceptable heart rate. Her renal function has also continued to improve. Recommendations: * Continue on telemetry. * IV heparin followed by the initiation of a factor X a inhibitor. * Echocardiogram results are reassuring in that her RV is at the upper normal limits for size with normal contractility and there is no evidence of pulmonary hypertension. * Continue to follow-up on nephrology recommendations. * Elevated glycosylated hemoglobin A1c noted and will need close outpatient follow-up. * DVT prophylaxis being addressed by for anticoagulation for atrial fibrillation /pulmonary embolism. Further recommendations will follow. Continue telemetry? Yes
[2016-09-23 00:28] VITALS: BP 110/64
--- NOTE | 2016-09-23 07:36 | PN- Housestaff ---
Subjective Follow-up For: New onset pulmonary embolism, atrial fibrillation new onset Complaints: no complaints Tele-Events Since Last Visit: Normal sinus rhythm with heart rate ranging from 63-75, no events overnight. Subjective: I followed up and examined the patient today. She is resting comfortably in a chair, is not in any distress, has no complaints, is eager to be discharged home , vitals have been stable, no overnight events. Review of Systems Constitutional: Reports: see HPI. Objective Last 24 Hrs of Vital Signs/I&O Vital Signs Date Time Temp Pulse Resp B/P Pulse O2 O2 Flow FiO2 Ox Delivery Rate 09/23 0749 97.3 70 17 149/98 96 Room Air 09/23 0028 98.7 85 20 110/64 95 Room Air 09/23 0000 96 Room Air Intake & Output 09/23 1600 09/23 0800 09/23 0000 Intake Total 480 480 292.2 Output Total Balance 480 480 292.2 Intake, IV 52.2 Intake, Oral 480 480 240 Physical Exam General Appearance: Alert, Oriented X3, Cooperative, No Acute Distress Other Physical Findings: Skin: No rashes, no breakdown HEENT: PERRLA, EOMI Neck: Supple, No JVD No cervical lymphadenopathy CVS: Reg Rate, Normal S1,S2, No MGR Resp: Normal air entry, no ronchi/rales Abdomen: Soft, No tenderness, Normal Bowel Sounds Neuro: Grossly normal Extremities: No cyanosis, pedal edema Current Medications: Current Medications Sig/Sabine Start time Last Medication Dose Route Stop Time Status Admin Acetaminophen 650 MG Q6P PRN 09/19 1845 DCD 09/20 PO 1444 Acetaminophen 325 MG Q6P PRN 09/19 1845 DCD PO Acetaminophen 1,000 MG Q6P PRN 09/19 1845 DCD IV Apixaban 10 MG BID 09/22 2199 DCD 09/23 PO 09/29 1001 1111 Atorvastatin Calcium 5 MG 1700 09/20 170 DCD 09/22 PO 193 Cyanocobalamin 1,000 MCG SuTuThSa 09/21 2138 DCD 09/21 PO 2206 Cyclobenzaprine HCl 5 MG TIDPRN PRN 09/19 1929 DCD 09/22 PO 2114 Diphenhydramine HCl 50 MG QPM 09/19 2199 DCD 09/22 PO 2114 Duloxetine HCl 60 MG DAILY 09/20 1000 DCD 09/23 PO 1112 Heparin Sodium 25,000 UNIT Q24H 09/19 1645 DC 09/21 (Porcine) IV 09/22 2200 1648 Sodium Chloride 500 ML Omeprazole 20 MG DAILY AC 09/20 0700 DCD 09/23 PO 0815 Polyethylene Glycol 17 GM DAILY 09/20 1000 DCD 09/22 PO 0855 Tramadol HCl 50 MG Q6-PRN PRN 09/21 1330 DCD 09/21 PO 1344 Last 24 Hrs of Lab/Idris Results Last 24 Hrs of Labs/Mics: Laboratory Tests 09/23/16 0639: Anion Gap 7, Estimated GFR 33 L, BUN/Creatinine Ratio 17.3 09/23/16 0115: APTT Cancelled Assessment/Plan Assessment: 80 Yo F with a PMH of breast cancer s/p chemotherapy and radiation, hyperlipidemia is being evaluated for chest pain, jaw pain, palpitations with VQ scan suggestive of possible acute PE and new onset atrial fibrillation. At the time of admission, vitals-temperature 96.6, pulse rate 140 (dropped down to 70), respiration 20, blood pressure 132/86, pulse ox 99% on room air ( currently 98% on 2 L nasal cannula). Lab findings indicated WBC 8.3, hemoglobin 12.2, hematocrit 37.3, platelets 280. Electrolytes-sodium 132, potassium 4.6, BUN 43, serum creatinine 1.7 (baseline unknown). ProBNP 1610, TSH 2.32, free T4 1 0.21; Radiological findings-chest x-ray did not show any acute pulmonary changes. VQ scan revealed intermediate probability for PE; Differential diagnoses considered: #1 acute pulmonary embolism #2 acute coronary syndrome #3 pneumonia. Below is the problem list and plan: #1 chest discomfort-differentials include acute PE, myocardial infarction. EKG revealed atrial fibrillation which could likely be due to acute PE. Serial troponins were positive, probably secondary to acute coronary event on demand ischemia on right heart strain. Started eliquis yesterday after discussing with Dr. Howe. No rate controlling meds at this time. VQ scan showed intermediate probablity for PE, and thus consider this as provoked DVT, and need anticoagulation for at least 3 months. She is stable enough to send her home today, but will need follow-ups as mentioned in her discharge instructions. #2 atrial fibrillation- Currently NSR. likely secondary to acute PE and myocardial infarction. Patient currently on Eliquis since yesterday. #3 abnormal kidney action -chronic kidney disease. Likely due to excessive NSAID use and/or other causes such as HTN. Await results from [facility]. Discontinue fluids. Nephology consult appreciated. #4 DVT prophylaxis- Eliquis #5 Diet: Regular diet #6 Code status: Full code Problem List: 1. Paroxysmal atrial fibrillation 2. Pulmonary embolism Pain Ratin Pain Location: chest Pain Goal: Pain 4 or less Pain Plan: prn Tomorrow's Labs & Rationales: -
[2016-09-23 07:49] VITALS: BP 149/98
[2016-09-23] MEDS ORDERED: ELIQUIS5 M2 PO (08:49)
--- NOTE | 2016-09-23 10:58 | PN- Nephrology ---
Assessment/Plan Assessment: Stage III CKD - Given longstanding NSAID use without other significant comorbidities, this is likely the cause of her chronic kidney disease which has been longstanding based on [facility] records. She had no albumin on her UA. Awaiting work-up for paraprotein. Mild SANDY - Likely 2/2 NSAID use just prior to coming to the hospital. Initially improved to 1.3 - now 1.5 which is within the range of her baseline renal function. Hyperparathyroidism - With a normal serum calcium and Stage III CKD, I would favor secondary hyperparathyroidism (vs primary hyperparathyroidism). She should be on TIW low dose calcitriol. A fib - On apixaban. PE - On apixaban. Osteoarthritis/Spinal stenosis - Would favor treatment with tylenol and/or tramadol. Avoid NSAID's Suggestion: -f/u SPEP and [facility] -Would start calcitriol 0.25mcg TIW -Avoid NSAID's in future -No dose adjustment for apixaban recommended by primary health care nurse based on current renal function I told the patient that she can continue to follow with her PCP (Dr. Tim Christina) and if her SCr were to go up, she could be referred to Nephrology at that time. But for now, I think she is OK to continue following with her PCP. She has our office information if needed. Will see PRN Please call [phone] Subjective Subjective: Pt feeling overall well No chest pain, palps, or SOB SCr 1.3->1.5 Urine had been negative for protein SPEP and [facility] pending PTH 187 with 25 Vit D level 33 - calcium 8.9 (albumin 3.8) - phos 3.6 Objective Vital Signs and I&Os Vital Signs Date Time Temp Pulse Resp B/P Pulse O2 O2 Flow FiO2 Ox Delivery Rate 09/23 0749 97.3 70 17 149/98 96 Room Air 09/23 0028 98.7 85 20 110/64 95 Room Air 09/23 0000 96 Room Air 09/22 1556 99.3 83 20 104/70 94 Room Air Intake & Output 09/23 1600 09/23 0400 09/22 1600 09/22 0400 09/21 1600 09/21 0400 Intake Total 480 292.2 939.2 1000 870 536 Output Total 550 650 Balance 480 292.2 389.2 1000 220 536 Intake, IV 52.2 139.2 450 170 136 Intake, Oral 480 240 800 550 700 400 Number 1 0 0 0 Bowel Movements Output, Urine 550 650 Physical Exam: Gen - NAD HEENT - supple CV - RRR Chest - clear Abd - soft, nontender Ext - no edema Neuro - AOX3 Current Medications: Current Medications Sig/Sabine Start time Last Medication Dose Route Stop Time Status Admin Acetaminophen 650 MG Q6P PRN 09/19 1845 AC 09/20 PO 1444 Acetaminophen 325 MG Q6P PRN 09/19 1845 AC PO Acetaminophen 1,000 MG Q6P PRN 09/19 184 AC IV Apixaban 10 MG BID 09/22 2199 AC 09/22 PO 09/29 1001 2115 Atorvastatin Calcium 5 MG 1700 09/20 1700 AC 09/22 PO 193 Cyanocobalamin 1,000 MCG SuTuThSa 09/21 213 AC 09/21 PO 220 Cyclobenzaprine HCl 5 MG TIDPRN PRN 09/19 1930 AC 09/22 PO 211 Diphenhydramine HCl 50 MG QPM 09/19 220 AC 09/22 PO 211 Duloxetine HCl 60 MG DAILY 09/20 1000 AC 09/22 PO 0855 Heparin Sodium 25,000 UNIT Q24H 09/19 1645 DC 09/21 (Porcine) IV 09/22 2199 1648 Sodium Chloride 500 ML Omeprazole 20 MG DAILY AC 09/20 0700 AC 09/23 PO 0815 Polyethylene Glycol 17 GM DAILY 09/20 1000 AC 09/22 PO 0855 Sodium Chloride 1,000 ML DAILY 09/19 1845 DC 09/21 IV 0804 Tramadol HCl 50 MG Q6-PRN PRN 09/21 1330 AC 09/21 PO 1344 Results Pertinent Lab Results: Laboratory Tests 09/23 09/23 09/22 09/22 0639 0115 1314 UNK Chemistry Sodium (137 - 145 mmol/L) 140 Potassium (3.5 - 5.1 mmol/L) 4.9 Chloride (98 - 107 mmol/L) 106 Carbon Dioxide (22 - 30 mmol/L) 26 Anion Gap (5 - 16) 7 BUN (7 - 17 mg/dL) 26 H Creatinine (0.5 - 1.0 mg/dL) 1.5 H Estimated GFR (>60 ml/min) 33 L BUN/Creatinine Ratio (7 - 25 %) 17.3 Coagulation APTT (25 - 37 SEC) Cancelled 66 H Miscellaneous Ref Lab Test Result Pending 09/22 09/22 0710 0650 Chemistry Prot Electrophoresis Pending Total Protein (PEP) Pending Albumin % (PEP) Pending Jpvag-8-Fqftzpiqp Pending Mbdbh-6-Uzssuvmfq Pending Rall-4-Mrxnfmid Pending Znue-7-Nxkfgrzk Pending Gamma Globulins Pending Abnorm Protein Band 1 Pending Abnorm Protein Band 2 Pending Abnorm Protein Band 3 Pending Urines Urine Color (YEL,AMB,STR) YEL Urine Clarity (CLEAR) CLEAR Urine pH (5.0 - 8.0) 7.0 Ur Specific [place] (1.001 - 1.035) 1.010 Urine Protein (NEG,<30 MG/DL) NEG Urine Ketones (NEG) NEG Urine Nitrite (NEG) NEG Urine Bilirubin (NEG) NEG Urine Urobilinogen (0.1 - 1.0 EU/dl) 0.2 Ur Leukocyte Esterase (NEG) NEG Ur Microscopic EXAM NOT REQUIRED Urine Hemoglobin (NEG) NEG Urine Glucose (N MG/DL) NEG 09/22 09/22 0650 0040 Chemistry Sodium (137 - 145 mmol/L) 139 Potassium (3.5 - 5.1 mmol/L) 4.3 Chloride (98 - 107 mmol/L) 107 Carbon Dioxide (22 - 30 mmol/L) 25 Anion Gap (5 - 16) 7 BUN (7 - 17 mg/dL) 22 H Creatinine (0.5 - 1.0 mg/dL) 1.3 H Estimated GFR (>60 ml/min) 39 L BUN/Creatinine Ratio (7 - 25 %) 16.9 Hemoglobin A1c (4.2 - 5.8 %) 6.1 H Phosphorus (2.5 - 4.5 mg/dL) 3.3 Magnesium (1.6 - 2.3 mg/dL) 2.1 25-OH Vitamin D Total (30 - 100 ng/ml) 33.0 PTH Intact (13.8 - 85 pg/ml) 186.9 H Coagulation APTT (25 - 37 SEC) 72 H Hematology CBC w Diff NO MAN DIFF REQ WBC (4.8 - 10.8 /CUMM) 5.7 RBC (4.20 - 5.40 /CUMM) 3.36 L Hgb (12.0 - 16.0 G/DL) 10.2 L Hct (37 - 47 %) 30.9 L MCV (81.0 - 99.0 FL) 92.2 MCH (27.0 - 31.0 PG) 30.4 RDW (11.5 - 14.5 %) 15.1 H Plt Count (130 - 400 /CUMM) 204 MPV (7.4 - 10.4 FL) 7.9 Gran % (42.2 - 75.2 %) 70.1 Lymphocytes % (20.5 - 51.1 %) 16.4 L Monocytes % (1.7 - 9.3 %) 5.8 Eosinophils % (0 - 5 %) 6.9 H Basophils % (0.0 - 2.0 %) 0.8 Absolute Granulocytes (1.4 - 6.5 /CUMM) 4.0 Absolute Lymphocytes (1.2 - 3.4 /CUMM) 0.9 L Absolute Monocytes (0.10 - 0.60 /CUMM) 0.3 Absolute Eosinophils (0.0 - 0.7 /CUMM) 0.4 Absolute Basophils (0.0 - 0.2 /CUMM) 0 PUBS MCHC (33.0 - 37.0 G/DL) 33.0 04/ 04/ 04/ 1317 0704 0115 Chemistry Sodium (137 - 145 mmol/L) 136 L Potassium (3.5 - 5.1 mmol/L) 4.3 Chloride (98 - 107 mmol/L) 106 Carbon Dioxide (22 - 30 mmol/L) 24 Anion Gap (5 - 16) 6 BUN (7 - 17 mg/dL) 28 H Creatinine (0.5 - 1.0 mg/dL) 1.3 H Estimated GFR (>60 ml/min) 39 L BUN/Creatinine Ratio (7 - 25 %) 21.5 Hemoglobin A1c (4.2 - 5.8 %) 6.2 H Phosphorus (2.5 - 4.5 mg/dL) 3.6 Magnesium (1.6 - 2.3 mg/dL) 2.1 Coagulation APTT (25 - 37 SEC) 72 H 74 H Hematology CBC w Diff NO MAN DIFF REQ WBC (4.8 - 10.8 /CUMM) 6.5 RBC (4.20 - 5.40 /CUMM) 3.46 L Hgb (12.0 - 16.0 G/DL) 10.4 L Hct (37 - 47 %) 32.1 L MCV (81.0 - 99.0 FL) 92.8 MCH (27.0 - 31.0 PG) 29.9 RDW (11.5 - 14.5 %) 15.5 H Plt Count (130 - 400 /CUMM) 211 MPV (7.4 - 10.4 FL) 7.8 Gran % (42.2 - 75.2 %) 72.1 Lymphocytes % (20.5 - 51.1 %) 14.6 L Monocytes % (1.7 - 9.3 %) 7.6 Eosinophils % (0 - 5 %) 5.0 Basophils % (0.0 - 2.0 %) 0.7 Absolute Granulocytes (1.4 - 6.5 /CUMM) 4.7 Absolute Lymphocytes (1.2 - 3.4 /CUMM) 0.9 L Absolute Monocytes (0.10 - 0.60 /CUMM) 0.5 Absolute Eosinophils (0.0 - 0.7 /CUMM) 0.3 Absolute Basophils (0.0 - 0.2 /CUMM) 0 PUBS MCHC (33.0 - 37.0 G/DL) 32.3 L 08 09/20 1933 1250 Coagulation APTT (25 - 37 SEC) 79 H Urines Urine Color Cancelled Urine Clarity Cancelled Urine pH Cancelled Ur Specific [place] Cancelled Urine Protein Cancelled Urine Ketones Cancelled Urine Nitrite Cancelled Urine Bilirubin Cancelled Urine Urobilinogen Cancelled Ur Leukocyte Esterase Cancelled Ur Microscopic Cancelled Urine Hemoglobin Cancelled Urine Glucose Cancelled Imaging/Other Studies: TTE CONCLUSIONS Normal size left ventricle. Severe concentric left ventricular hypertrophy. Normal left ventricular wall motion. Normal left ventricular ejection fraction visually estimated at 65%. Abnormal relaxation filling pattern of the left ventricle for age (stage 1 diastolic dysfunction). Right ventricle at upper limits of normal. Normal atrial size. Mild mitral regurgitation. Trace tricuspid regurgitation. No evidence of pulmonary hypertension. Abd U/S RIGHT KIDNEY: The right kidney is grossly unremarkable. The lower pole is obscured by overlying bowel gas.. No hydronephrosis. No renal calculi or focal parenchymal lesions. The kidney measures 9.2 cm in maximum dimension. LEFT KIDNEY: The left kidney cannot be visualized secondary to bowel gas.
--- NOTE | 2016-09-23 12:06 | PN- Cardiology ---
Subjective Subjective: No complaints and anxious for discharge. Denies any chest discomfort, palpitations, shortness of breath, etc. Objective Vital Signs and I&Os Vital Signs Date Time Temp Pulse Resp B/P Pulse O2 O2 Flow FiO2 Ox Delivery Rate 09/23 0749 97.3 70 17 149/98 96 Room Air 09/23 0028 98.7 85 20 110/64 95 Room Air 09/23 0000 96 Room Air 09/22 1556 99.3 83 20 104/70 94 Room Air Intake & Output 09/23 1600 09/23 0800 09/23 0000 09/22 1600 09/22 0800 09/22 0000 Intake Total 480 292.2 800 139.2 1000 Output Total 550 Balance 480 292.2 800 -410.8 1000 Intake, IV 52.2 139.2 450 Intake, Oral 480 240 800 550 Number 1 0 Bowel Movements Output, Urine 550 Physical Exam: On physical examination she is a well-developed, overweight elderly female in no acute distress with nasal oxygen in place. Vital signs: See above. HEENT: Normocephalic, atraumatic, EOMI, moist mucous membranes. Neck: No JVD, no bruits. Lungs: Clear to auscultation bilaterally. Heart: S1, S2 with no murmur, gallop, or rub appreciated. PMI fifth ICS at MCL. Abdomen: Soft, nontender, positive bowel sounds. Extremities: No edema. Peripheral pulses: Symmetrical and intact. Current Medications: Current Medications Sig/Sabine Start time Last Medication Dose Route Stop Time Status Admin Acetaminophen 650 MG Q6P PRN 09/19 1845 AC 09/20 PO 1444 Acetaminophen 325 MG Q6P PRN 09/19 184 AC PO Acetaminophen 1,000 MG Q6P PRN 09/19 184 AC IV Apixaban 10 MG BID 09/22 2199 AC 09/23 PO 09/29 1001 1111 Atorvastatin Calcium 5 MG 1700 09/20 1700 AC 09/22 PO 193 Cyanocobalamin 1,000 MCG SuTuThSa 09/21 2138 AC 09/21 PO 2206 Cyclobenzaprine HCl 5 MG TIDPRN PRN 09/19 1929 AC 09/22 PO 2114 Diphenhydramine HCl 50 MG QPM 09/19 2199 AC 09/22 PO 211 Duloxetine HCl 60 MG DAILY 09/20 1000 AC 09/23 PO 1112 Heparin Sodium 25,000 UNIT Q24H 09/19 1645 DC 09/21 (Porcine) IV 09/22 2200 1648 Sodium Chloride 500 ML Omeprazole 20 MG DAILY AC 09/20 0700 AC 09/23 PO 0815 Polyethylene Glycol 17 GM DAILY 09/20 1000 AC 09/22 PO 0855 Tramadol HCl 50 MG Q6-PRN PRN 09/21 1330 AC 09/21 PO 1344 Results Last 48 Hrs of Labs/Mics: Laboratory Tests 09/23/16 0639: Anion Gap 7, Estimated GFR 33 L, BUN/Creatinine Ratio 17.3 09/23/16 0115: APTT Cancelled 09/22/16 1314: APTT 66 H 09/22/16 1000: Ref Lab Test Result Pending 09/22/16 0710: Urine Color YEL, Urine Clarity CLEAR, Urine pH 7.0, Ur Specific [place] 1.010, Urine Protein NEG, Urine Ketones NEG, Urine Nitrite NEG, Urine Bilirubin NEG, Urine Urobilinogen 0.2, Ur Leukocyte Esterase NEG, Ur Microscopic EXAM NOT REQUIRED, Urine Hemoglobin NEG, Urine Glucose NEG 09/22/16 0650: Prot Electrophoresis Pending, Total Protein (PEP) Pending, Albumin % (PEP) Pending, Gyopt-0-Aetnqqiup Pending, Afzuu-7-Thbvwgtdk Pending, Ybrx-3-Vfbswxcv Pending, Ibzh-1-Bezagftn Pending, Gamma Globulins Pending, Abnorm Protein Band 1 Pending, Abnorm Protein Band 2 Pending, Abnorm Protein Band 3 Pending 09/22/16 0650: Anion Gap 7, Estimated GFR 39 L, BUN/Creatinine Ratio 16.9, Hemoglobin A1c 6.1 H, Phosphorus 3.3, Magnesium 2.1, 25-OH Vitamin D Total 33.0, PTH Intact 186.9 H, CBC w Diff NO MAN DIFF REQ, RBC 3.36 L, MCV 92.2, MCH 30.4, RDW 15.1 H, MPV 7.9, Gran % 70.1, Lymphocytes % 16.4 L, Monocytes % 5.8, Eosinophils % 6.9 H, Basophils % 0.8, Absolute Granulocytes 4.0, Absolute Lymphocytes 0.9 L, Absolute Monocytes 0.3, Absolute Eosinophils 0.4, Absolute Basophils 0, PUBS MCHC 33.0 09/22/16 0040: APTT 72 H 09/21/16 1317: APTT 72 H, CBC w Diff NO MAN DIFF REQ, RBC 3.46 L, MCV 92.8, MCH 29.9, RDW 15.5 H, MPV 7.8, Gran % 72.1, Lymphocytes % 14.6 L, Monocytes % 7.6, Eosinophils % 5.0, Basophils % 0.7, Absolute Granulocytes 4.7, Absolute Lymphocytes 0.9 L, Absolute Monocytes 0.5, Absolute Eosinophils 0.3, Absolute Basophils 0, PUBS MCHC 32.3 L Assessment/Plan Assessment/Plan Mrs. Galdamez is an elderly female with a history of obesity, hypertension, dyslipidemia, previous "provoked" DVT being treated for breast carcinoma who presented with new onset atrial fibrillation with a rapid ventricular response secondary to a provoked pulmonary embolism following a fall/immobility for the past several weeks. Fortunately, she had only a modest troponin elevation which is likely on the basis of the pulmonary embolism, chronic kidney disease, demand ischemia etc. Converted back to sinus rhythm with first-degree AV block and has been maintaining sinus rhythm since that time with an acceptable heart rate. Recommendations: * Continue on telemetry. * IV heparin followed by the initiation of a factor X a inhibitor. * Echocardiogram results are reassuring in that her RV is at the upper normal limits for size with normal contractility and there is no evidence of pulmonary hypertension. * Continue to follow-up on nephrology recommendations. * Elevated glycosylated hemoglobin A1c noted and will need close outpatient follow-up. * Her renal function will also need outpatient follow-up. * DVT prophylaxis being addressed by for anticoagulation for atrial fibrillation /pulmonary embolism. Further recommendations will follow. Continue telemetry? No
--- NOTE | 2016-10-09 18:36 | Discharge Summary ---
Visit Information Visit Dates Admission Date: 09/19/16 Discharge Date: 09/23/16 Hospital Course Course Attending Physician: NALINI DOMINGUEZ,LUCIEN Shah [facility]: 80 Yo F with a PMH of breast cancer s/p chemotherapy and radiation, hyperlipidemia is being evaluated for chest pain, jaw pain, palpitations with VQ scan suggestive of possible acute PE and new onset atrial fibrillation. At the time of admission, vitals-temperature 96.6, pulse rate 140 (dropped down to 70), respiration 20, blood pressure 132/86, pulse ox 99% on room air ( currently 98% on 2 L nasal cannula). Lab findings indicated WBC 8.3, hemoglobin 12.2, hematocrit 37.3, platelets 280. Electrolytes-sodium 132, potassium 4.6, BUN 43, serum creatinine 1.7 (baseline unknown). ProBNP 1610, TSH 2.32, free T4 1 0.21; Radiological findings-chest x-ray did not show any acute pulmonary changes. VQ scan revealed intermediate probability for PE; Differential diagnoses considered: #1 acute pulmonary embolism #2 acute coronary syndrome #3 pneumonia. Below is the problem list and plan: #1 chest discomfort-differentials included acute PE, ACS. EKG revealed atrial fibrillation which could likely be due to acute PE. Serial troponins were positive, probably secondary to acute coronary event on demand ischemia on right heart strain. Started eliquis after discussing with gas torch solderer Dr. Howe. No rate controlling meds at this time. VQ scan showed intermediate probablity for PE, and thus considered this as provoked DVT that needs anticoagulation for at least 3 months. Continue statin. #2 atrial fibrillation- Currently NSR. Likely secondary to acute PE and myocardial infarction. Patient currently on Eliquis for anticoagulation. #3 chronic kidney disease. Likely due to excessive NSAID use and/or other causes such as HTN. Awaiting results from [facility]. Nephrology consulted. According to dredge pump operator, patient can follow-up with primary care physician at this time and can be referred from PCP to dredge pump operator services when an as needed in future. Creatinine on September 23, 2016 was 1.5. #4 DVT prophylaxis- Eliquis #5 Diet: Regular diet #6 Code status: Full code Allergies: Coded Allergies: hydrocodone (From VICODIN) (Intermediate, GI DISTRESS 09/19/16) Disposition Summary Disposition Principal Diagnosis: - Pulmonary emboliosm - Atrial fibrillation Additional Diagnosis: breast cancer s/p chemotherapy and radiation, hyperlipidemia Discharge Disposition: home or self care Discharge Instructions General Discharge Information Code Status: Full Code Patient's Diet: Regular diet Patient's Activity: As tolerated Follow-Up Instructions/Appts: Follow-up with your primary care physician within 7 days of discharge. Your primary care physician can refer you to nephrology at anytime if deemed necessary for chronic kidney disease. Follow-up with cardiology service within 1-2 weeks of discharge. Please return to emergency if symptoms worsen. Medications at Discharge Discharge Medications: Stop taking the following medications: Meloxicam (Meloxicam) 15 MG TABLET ORAL DAILY Qty = 90 Continue taking these medications: Simvastatin (Simvastatin*) 10 MG TABLET 1 Tablet ORAL DAILY Qty = 90 Comments: Last Taken: 09/22/16 Time: 7:30 PM ATORVASTATIN GIVEN Duloxetine HCl (Duloxetine HCl) 60 MG CAPSULE.DR 1 Capsule ORAL DAILY Qty = 90 Comments: Last Taken: 09/23/16 Time: 11 AM Tramadol HCl (Tramadol HCl) 50 MG TABLET 1 Tablet ORAL 2 x Daily as needed as needed for PAIN Qty = 90 Comments: Last Taken: 09/20/16 Time: 9 AM Cyclobenzaprine HCl (Cyclobenzaprine HCl) 5 MG TABLET 1 Tablet ORAL THREE TIMES A DAY NEEDED as needed for MUSCLE SPASMS Qty = 30 Comments: Last Taken: 09/22/16 Time: 9:15 PM Calcium Carbonate/Vitamin D3 (Caltrate 600 + D Tablet) 600 MG-800 TABLET 1 Tablet ORAL DAILY Comments: NOT GIVEN IN HOSPITAL Cholecalciferol (Vitamin D3) (Vitamin D3) 2,000 UNIT TABLET 1 Tablet ORAL DAILY Comments: NOT GIVEN IN HOSPITAL Cyanocobalamin (Vitamin B-12) 1,000 MCG TABLET 1 Tablet ORAL SuTuThSa Comments: Last Taken: 09/21/16 Time: 10 PM Krill/Clio-3/Dha/Epa/Lipids (Krill Oil 300 MG Softgel) 300 MG-90 MG-24 MG-50 MG -130 MG CAPSULE 1 Capsule ORAL DAILY Comments: NOT GIVEN IN HOSPITAL Esomeprazole Magnesium (Nexium 24HR) 22.3 MG CAPSULE.DR 1 Capsule ORAL DAILY Comments: Last Taken: 09/23/16 Time: 8:15 AM PRILOSEC GIVEN Diphenhydramine HCl (Diphenhydramine HCl) 50 MG CAPSULE 1 Capsule ORAL Every night Comments: Last Taken: 09/22/16 Time: 9:15 PM Start taking the following new medications: Apixaban (Eliquis) 5 MG TABLET 0 ORAL SEE INSTRUCTIONS Qty = 30 Refills = 1 Instructions: Please take 2 tabs (10 mg total) twice daily for 7 days (09/22/16 to 09/28/16), then take 1 tablet (5 mg total) twice daily starting thursday09/29/16. Please follow up with Dr. Howe in 1-2 weeks to determine how long to remain on this medication. Comments: Last Taken: 09/23/16 Time: 11 AM Copies To: BRIANNA SAUNDERS MD
== END 2016-09-23 13:30 | DRG 308 ==
LOC: ENRESERVDT → ENRESERVTM → ERH 11:51 → ENPENDDIS 17:45 → 1NO 17:45 → ERHI 17:45 → 1NO 20:29
PROVIDERS: Emergency Medicine; Internal Medicine; Internal Medicine Cardiovascular Disease; Ophthalmology; ADMIT Internal Medicine Interventional Cardiology
DX: I48.0 Paroxysmal atrial fibrillation (principal); I26.99 Other pulmonary embolism without acute cor pulmonale; N17.9 Acute kidney failure, unspecified; I24.8 Other forms of acute ischemic heart disease; N18.3 Chronic kidney disease, stage 3 (moderate); E66.9 Obesity, unspecified; Z68.38 Body mass index [BMI] 38.0-38.9, adult; I44.0 Atrioventricular block, first degree; I12.9 Hypertensive chronic kidney disease with stage 1 through stage 4 chronic kidney disease, or unspecified chronic kidney disease; M19.90 Unspecified osteoarthritis, unspecified site; E21.3 Hyperparathyroidism, unspecified; Z85.3 Personal history of malignant neoplasm of breast; E78.5 Hyperlipidemia, unspecified; Z86.718 Personal history of other venous thrombosis and embolism
CPT/HCPCS: 1NSP; 83883; 84133; 84300; 36415; 78582; 81003; 82436; 82570; 84165; 93005; 93010; 93306; 93970; 96374; 99291; A9540; A9558; J0131; J1644